=== PATIENT | female | born 1980 | race Caucasian/White ===

== ENCOUNTER 2023-03-12 18:34 | Emergency (ER) | payer OTHER, SELFPAY ==
[2023-03-12 18:40] VITALS: BP 122/71; PULSE 97; RESP 16; TEMP 36.7; O2SAT 96; BMI 31.0
--- NOTE | 2023-03-12 18:54 | ED.DENTAL1 ---
HPI - Dental/Oral General Chief complaint: Dental/Oral Stated complaint: DENTAL PAIN Time Seen by Provider: 03/12/23 18:35 Source: patient Mode of arrival: walk-in Limitations: no limitations History of Present Illness HPI Narrative: patient is a 42-year-old female presents the emergency department for the evaluation of dental pain and left-sided facial pain. Patient states the last several weeks she has had pain in tooth #14, tooth #15. She feels the pain radiates to the left side of the maxilla. She does have some pain radiation to the ear and left side of the jaw. No difficulty swallowing or breathing. She is not concerned for . She has had no fevers or vomiting. She states she does have a foul taste in the mouth. She is not able to see her dentist until April 01 and they would not call in antibiotics over the phone for her. Related Data Home Medications Medication Instructions Recorded Confirmed alprazolam 1 mg tablet (Xanax) 1 mg PO QID 03/12/23 03/12/23 brexpiprazole 0.5 mg tablet 4 mg PO DAILY 03/12/23 03/12/23 (Rexulti) dextroamphetamine-amphetamine 15 20 mg PO TID 03/12/23 03/12/23 mg tablet Previous Rx's Medication Instructions Recorded amoxicillin 500 mg capsule 500 mg PO TID 10 days #30 caps 03/12/23 hydrocodone 5 mg-acetaminophen 325 1 tab PO Q6H PRN pain #8 tabs 03/12/23 mg tablet ketorolac 10 mg tablet 10 mg PO TID PRN pain #10 tabs 03/12/23 Allergies Allergy/AdvReac Type Severity Reaction Status Date / Time No Known Drug Allergies Allergy Verified 03/12/23 18:44 Review of Systems ROS Constitutional Denies: fever or chills Ears, nose, mouth, and throat Denies: throat pain or neck pain Respiratory Denies: shortness of breath or cough Gastrointestinal Denies: nausea or vomiting Musculoskeletal Denies: back pain Integumentary/Breast Denies: rash Neurological Denies: headache Hematologic/Lymphatic Denies: easy bruising PFSH PFSH Social History Smoking status: Current every day smoker Exam Narrative Exam Narrative: Gen.: Awake, alert, in no distress Head: Normocephalic, atraumatic ENT: Moist mucous membranes; bilateral tympanic membranes clear, multiple diffuse dental caries with tenderness over tooth #14 and tooth #15. No visible dental abscess. No trismus or drooling. No redness or swelling under the tongue. Airway widely open and patent. no mandibular or maxillary swelling Respiratory: No respiratory distress Extremities: Moves extremities equally Psych: Normal mood and affect Neuro: No focal neuro deficit Skin: Warm, dry, intact Constitutional Vital Signs, click to edit/add: Last Vital Signs Temp 98.0 F 03/12/23 18:40 Pulse 97 H 03/12/23 18:40 Resp 16 03/12/23 18:40 BP 122/71 03/12/23 18:40 Pulse Ox 96 03/12/23 18:40 O2 Del Method Room Air 03/12/23 18:40 Course Vital Signs Vital signs: Vital Signs Temperature 98.0 F 03/12/23 18:40 Pulse Rate 97 H 03/12/23 18:40 Respiratory Rate 16 03/12/23 18:40 Blood Pressure 122/71 03/12/23 18:40 Pulse Oximetry 96 03/12/23 18:40 Oxygen Delivery Method Room Air 03/12/23 18:40 Temperature 98.0 F 03/12/23 18:40 Pulse Rate 97 H 03/12/23 18:40 Respiratory Rate 16 03/12/23 18:40 Blood Pressure 122/71 03/12/23 18:40 Pulse Oximetry 96 03/12/23 18:40 Oxygen Delivery Method Room Air 03/12/23 18:40 MDM - Dental/Oral MDM Narrative Medical decision making narrative: patient with a benign exam, no evidence of dental abscess at this time. Vital signs stable. Treated with dental analgesia, short course of analgesics and NSAIDs with antibiotics. Follow-up with dentist as scheduled and return to the Emergency Room if symptoms change or worsen Medical Records Attestation: I reviewed the patient's medical records. Discharge Plan Discharge Chief Complaint: Dental/Oral Clinical Impression: Dental caries, Toothache Patient Disposition: Home, Self-Care Time of Disposition Decision: 18:51 Condition: Good Prescriptions / Home Meds: New amoxicillin 500 mg capsule 500 mg PO TID 10 Days Qty: 30 0RF hydrocodone-acetaminophen 5-325 mg tablet 1 tab PO Q6H PRN (Reason: pain) Qty: 8 0RF Rx Instructions: DX: K08.89 ketorolac 10 mg tablet 10 mg PO TID PRN (Reason: pain) Qty: 10 0RF No Action Rexulti 0.5 mg tablet 4 mg PO DAILY dextroamphetamine-amphetamine 15 mg tablet 20 mg PO TID alprazolam [Xanax] 1 mg tablet 1 mg PO QID Instructions: Toothache (ED) Additional Instructions: Follow up with your dentist as scheduled Stand Alone Forms: Portal Instructions Referrals: Physician,Non-Staff, MD [Primary Care Provider] - 1 week
[2023-03-12] MEDS: BENZOCAINE 30 ML, lidocaine HCL 15 ML MM (19:19)
== END 2023-03-12 19:25 | disposition home or self-care (01) ==
PROVIDERS: Emergency Provider Emergency Medicine
DX: K02.9 Dental caries, unspecified (principal); K08.89 Other specified disorders of teeth and supporting structures; Z79.899 Other long term (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 therapy; F17.210 Nicotine dependence, cigarettes, uncomplicated
CPT/HCPCS: 99283

== ENCOUNTER 2023-04-08 14:10 | Emergency (ER) | payer OTHER, SELFPAY ==
[2023-04-08 14:23] VITALS: BP 163/98; PULSE 96; RESP 18; O2SAT 97; BMI 29.5
--- NOTE | 2023-04-08 14:55 | ED_ITS ---
Documented by User: EMIGDIO Talbert 04/08/23 15:00 HPI - Back Pain/Injury General Chief Complaint: Back Pain/Injury Stated Complaint: FALL-BACK PAIN Time Seen by Provider: 04/08/23 14:54 Source: patient Mode of arrival: walk-in Limitations: no limitations History of Present Illness HPI Narrative: 42-year-old female presents with left-sided back pain after she slipped on the last step and hit her back 7 hours ago.. Denies hitting her head. 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 She took Motrin. Pain radiates down her left leg. denies bowel or bladder incontinence. Moving around makes pain worse. Denies BLE swelling, temp or sensation changes. Related Data Home Medications Medication Instructions Recorded Confirmed alprazolam 1 mg tablet (Xanax) 1 mg PO QID 03/12/23 03/12/23 brexpiprazole 0.5 mg tablet 4 mg PO DAILY 03/12/23 03/12/23 (Rexulti) dextroamphetamine-amphetamine 15 20 mg PO TID 03/12/23 03/12/23 mg tablet Previous Rx's Medication Instructions Recorded amoxicillin 500 mg capsule 500 mg PO TID 10 days #30 caps 03/12/23 hydrocodone 5 mg-acetaminophen 325 1 tab PO Q6H PRN pain #8 tabs 03/12/23 mg tablet ketorolac 10 mg tablet 10 mg PO TID PRN pain #10 tabs 03/12/23 tizanidine 4 mg tablet (Zanaflex) 4 mg PO TID PRN muscle spasticity 04/08/23 5 days #15 tabs Allergies Allergy/AdvReac Type Severity Reaction Status Date / Time No Known Drug Allergies Allergy Verified 03/12/23 18:44 Review of Systems ROS Status of ROS 10 or more systems reviewed and unremarkable except as noted in history and below PFSH PFS Social History Smoking status: Current every day smoker Exam Narrative Exam Narrative: General: A&Ox3, no distress, talking in full an complete sentences skin: warm, dry, intact head: normocephalic, atraumatic eyes: EOMI nose: nares patent neck: supple, trachea midline respiratory: non-labored extremities: FROM x 4, strength +5/5 spine: Tender to L3 vertebral with L3/4 left paraspinal tenderness, normal ROM, no step offs neuro: A&Ox3 psych: appropriate mood and affect, cooperative Constitutional Vital Signs, click to edit/add: Last Vital Signs Pulse 96 H 04/08/23 14:23 Resp 18 04/08/23 14:23 BP 163/98 H 04/08/23 14:23 Pulse Ox 97 04/08/23 14:23 O2 Del Method Room Air 04/08/23 14:23 Course Vital Signs Vital signs: Vital Signs Pulse Rate 96 H 04/08/23 14:23 Respiratory Rate 18 04/08/23 14:23 Blood Pressure 163/98 H 04/08/23 14:23 Pulse Oximetry 97 04/08/23 14:23 Oxygen Delivery Method Room Air 04/08/23 14:23 Pulse Rate 96 H 04/08/23 14:23 Respiratory Rate 18 04/08/23 14:23 Blood Pressure 163/98 H 04/08/23 14:23 Pulse Oximetry 97 04/08/23 14:23 Oxygen Delivery Method Room Air 04/08/23 14:23 MDM - Back Pain/Injury MDM Narrative Medical decision making narrative: I discussed imaging to rule out fracture and patient declines. Patient states that she cannot have narcotics and will be given Toradol and a lidocaine patch and discharged with Zanaflex. F/u with PCP. afebrile, not tachypneic, not tachycardic, tolerating p.o., not hypoxic, non toxic appearing and ambulating at baseline and hemodynamically stable to be d/c. answered all questions. educated on SE of meds. pt in agreement with tx. educated when to return to ER. Discharge Plan Discharge Chief Complaint: Back Pain/Injury Clinical Impression: Fall (on) (from) other stairs and steps, initial encounter Lumbar contusion Qualifiers: Encounter type: initial encounter Qualified Code(s): S30.0XXA - Contusion of lower back and pelvis, initial encounter Patient Disposition: Home, Self-Care Time of Disposition Decision: 14:56 Condition: Good Mode of Transportation: Private Vehicle Prescriptions / Home Meds: New tizanidine [Zanaflex] 4 mg tablet 4 mg PO TID PRN (Reason: muscle spasticity) 5 Days Qty: 15 0RF No Action Rexulti 0.5 mg tablet 4 mg PO DAILY dextroamphetamine-amphetamine 15 mg tablet 20 mg PO TID alprazolam [Xanax] 1 mg tablet 1 mg PO QID amoxicillin 500 mg capsule 500 mg PO TID 10 Days Qty: 30 0RF hydrocodone-acetaminophen 5-325 mg tablet 1 tab PO Q6H PRN (Reason: pain) Qty: 8 0RF Rx Instructions: DX: K08.89 ketorolac 10 mg tablet 10 mg PO TID PRN (Reason: pain) Qty: 10 0RF Instructions: Contusion in Adults (ED) Stand Alone Forms: Portal Instructions Referrals: Physician,Non-Staff, MD [Primary Care Provider] - 1 week Discharge Date/Time: 04/08/23 15:26 Documented by User: Terrance Cruz MD 04/08/23 17:59 HPI - Back Pain/Injury General Chief Complaint: Back Pain/Injury Stated Complaint: FALL-BACK PAIN Time Seen by Provider: 04/08/23 14:54 Related Data Home Medications Medication Instructions Recorded Confirmed alprazolam 1 mg tablet (Xanax) 1 mg PO QID 03/12/23 03/12/23 brexpiprazole 0.5 mg tablet 4 mg PO DAILY 03/12/23 03/12/23 (Rexulti) dextroamphetamine-amphetamine 15 20 mg PO TID 03/12/23 03/12/23 mg tablet Previous Rx's Medication Instructions Recorded amoxicillin 500 mg capsule 500 mg PO TID 10 days #30 caps 03/12/23 hydrocodone 5 mg-acetaminophen 325 1 tab PO Q6H PRN pain #8 tabs 03/12/23 mg tablet ketorolac 10 mg tablet 10 mg PO TID PRN pain #10 tabs 03/12/23 tizanidine 4 mg tablet (Zanaflex) 4 mg PO TID PRN muscle spasticity 04/08/23 5 days #15 tabs Allergies Allergy/AdvReac Type Severity Reaction Status Date / Time No Known Drug Allergies Allergy Verified 03/12/23 18:44 PFSH [facility] Social History Smoking status: Current every day smoker Exam Narrative Exam Narrative: General: A&Ox3, no distress, talking in full an complete sentences skin: warm, dry, intact head: normocephalic, atraumatic eyes: EOMI nose: nares patent neck: supple, trachea midline respiratory: non-labored extremities: FROM x 4, strength +5/5 spine: Tender to L3 vertebral with L3/4 left paraspinal tenderness, normal ROM, no step offs; No signs of cauda equina or saddle anesthesia. neuro: A&Ox3 psych: appropriate mood and affect, cooperative Constitutional Vital Signs, click to edit/add: Last Vital Signs Pulse 96 H 04/08/23 14:23 Resp 18 04/08/23 14:23 BP 163/98 H 04/08/23 14:23 Pulse Ox 97 04/08/23 14:23 O2 Del Method Room Air 04/08/23 14:23 Course Vital Signs Vital signs: Vital Signs Pulse Rate 96 H 04/08/23 14:23 Respiratory Rate 18 04/08/23 14:23 Blood Pressure 163/98 H 04/08/23 14:23 Pulse Oximetry 97 04/08/23 14:23 Oxygen Delivery Method Room Air 04/08/23 14:23 Pulse Rate 96 H 04/08/23 14:23 Respiratory Rate 18 04/08/23 14:23 Blood Pressure 163/98 H 04/08/23 14:23 Pulse Oximetry 97 04/08/23 14:23 Oxygen Delivery Method Room Air 04/08/23 14:23 MDM - Back Pain/Injury MDM Narrative Medical decision making narrative: I discussed imaging to rule out fracture and patient declines. Patient states that she cannot have narcotics and will be given Toradol and a lidocaine patch and discharged with Zanaflex. F/u with PCP. afebrile, not tachypneic, not tachycardic, tolerating p.o., not hypoxic, non toxic appearing and ambulating at baseline and hemodynamically stable to be d/c. answered all questions. educated on SE of meds. pt in agreement with tx. educated when to return to ER. I, Dr Cruz, have reviewed the above progress note and course of action in the ER; agree with the above. I have personally seen and evaluated this patient, gone over history and physical, and discussed disposition and treatment plan with the patient. Discharge Plan Discharge Chief Complaint: Back Pain/Injury Clinical Impression: Fall (on) (from) other stairs and steps, initial encounter Lumbar contusion Qualifiers: Encounter type: initial encounter Qualified Code(s): S30.0XXA - Contusion of lower back and pelvis, initial encounter Patient Disposition: Home, Self-Care Time of Disposition Decision: 14:56 Condition: Good Mode of Transportation: Private Vehicle Prescriptions / Home Meds: New tizanidine [Zanaflex] 4 mg tablet 4 mg PO TID PRN (Reason: muscle spasticity) 5 Days Qty: 15 0RF No Action Rexulti 0.5 mg tablet 4 mg PO DAILY dextroamphetamine-amphetamine 15 mg tablet 20 mg PO TID alprazolam [Xanax] 1 mg tablet 1 mg PO QID amoxicillin 500 mg capsule 500 mg PO TID 10 Days Qty: 30 0RF hydrocodone-acetaminophen 5-325 mg tablet 1 tab PO Q6H PRN (Reason: pain) Qty: 8 0RF Rx Instructions: DX: K08.89 ketorolac 10 mg tablet 10 mg PO TID PRN (Reason: pain) Qty: 10 0RF Instructions: Contusion in Adults (ED) Stand Alone Forms: Portal Instructions Referrals: Physician,Non-Staff, MD [Primary Care Provider] - 1 week Discharge Date/Time: 04/08/23 15:26
[2023-04-08] MEDS: LIDOCAINE 5% PATCH 1 PATCH TOPICAL (15:14)
[2023-04-08] MEDS: KETOROLAC TROMETHAMINE 30 MG/ML VIAL 15 MG IM (15:15)
== END 2023-04-08 15:26 | disposition home or self-care (01) ==
PROVIDERS: Emergency Provider Emergency Medicine
DX: S30.0XXA Contusion of lower back and pelvis, initial encounter (principal); W10.9XXA Fall (on) (from) unspecified stairs and steps, initial encounter; Z79.899 Other long term (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 therapy; F17.210 Nicotine dependence, cigarettes, uncomplicated
CPT/HCPCS: 96372; 99284

== ENCOUNTER 2023-04-16 14:28 | Emergency (ER) | payer OTHER, SELFPAY ==
[2023-04-16] VITALS (11 sets, daily range): BP systolic 136–154; BP diastolic 86–88; PULSE 77–96; RESP 13–25; TEMP 36.4; O2SAT 97–100; BMI 26.9
--- NOTE | 2023-04-16 14:52 | XR_ITS ---
[facility] [place] [id number] Patient Name: ARNULFO OTOOLE MRN: [id number] date: 1980 Sex: F Assigned Patient Location: ER Current Patient Location: ER Accession/Order Number: [id number] Exam Date: 04/16/2023 15:05 Report Date: 04/16/2023 15:29 At the request of: STEVEN GOMEZ Procedure: XR chest 1V XR chest 1V, 04/16/2023 3:05 PM EDT, [facility]001 INDICATION: Shortness of breath COMPARISON: Chest radiograph from 08/05/2022. TECHNIQUE: Frontal view of the chest obtained. FINDINGS: The heart is normal in size. The aorta and mediastinum appear unremarkable. The pulmonary vasculature is normal. The lungs are clear. There is no evidence of pneumothorax or pleural effusion. The osseous structures appear intact. XR/XR chest 1V IMPRESSION: No active pulmonary process. Electronically authenticated by: NIKKI REN Date: 04/16/2023 15:29
--- NOTE | 2023-04-16 14:52 | ECG_ITS ---
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
--- NOTE | 2023-04-16 14:53 | ED_ITS ---
HPI - SOB/Dyspnea General Chief Complaint: Shortness of Breath/Dyspnea Stated Complaint: SHORTNESS OF BREATH Time Seen by Provider: 04/16/23 14:42 Source: patient Mode of arrival: walk-in Limitations: no limitations History of Present Illness HPI Narrative: patient is a 42-year-old female who presents to the emergency department for a one-week history of shortness of breath. She has had no objective fevers. She s tates she has had nasal congestion. She states she feels as though she cannot take a deep breath. She is concerned because in August she was diagnosed with pneumonia. She is a one pack per day cigarette smoker. She has had no vomiting or diarrhea. No complaints of chest pain. She has not had any sputum production or hemoptysis. She states she used a breathing treatment from her [id number] several days ago and states this did help her. She denies any history of heart or lung problems. She is not on control, no recent surgeries, no extremity swelling. Related Data Home Medications Medication Instructions Recorded Confirmed alprazolam 1 mg tablet (Xanax) 1 mg PO QID 03/12/23 04/16/23 brexpiprazole 0.5 mg tablet 4 mg PO DAILY 03/12/23 04/16/23 (Rexulti) dextroamphetamine-amphetamine 15 20 mg PO TID 03/12/23 03/12/23 mg tablet Previous Rx's Medication Instructions Recorded ketorolac 10 mg tablet 10 mg PO TID PRN pain #10 tabs 03/12/23 tizanidine 4 mg tablet (Zanaflex) 4 mg PO TID PRN muscle spasticity 04/08/23 5 days #15 tabs albuterol sulfate 90 mcg/actuation 2 inh inhalation Q4H PRN shortness 04/16/23 aerosol inhaler of breath or wheezing #8.5 grams azithromycin 250 mg tablet See Rx Instructions PO .COMPLEX #6 04/16/23 (Zithromax Z-Mitch) tabs [id number] 10 ml PO Q6H PRN cold symptoms 04/16/23 2 mg-30 mg-10 mg/5 mL oral syrup #200 mL (Bromfed DM) prednisone 20 mg tablet See Rx Instructions .Route 04/16/23 .COMPLEX #12 tabs Allergies Allergy/AdvReac Type Severity Reaction Status Date / Time No Known Drug Allergies Allergy Verified 03/12/23 18:44 Review of Systems ROS Constitutional Denies: fever or chills Ears, nose, mouth, and throat Reports: nasal congestion Cardiovascular Denies: chest pain Respiratory Reports: shortness of breath and cough Gastrointestinal Denies: nausea, vomiting or diarrhea Musculoskeletal Denies: back pain, neck pain or extremity swelling Endocrine Denies: excessive urination PFSH PFS Social History Smoking status: Current every day smoker Exam Narrative Exam Narrative: Gen.: Awake, alert, in no distress Head: Normocephalic, atraumatic ENT: Moist mucous membranes, bilateral tympanic membranes clear Respiratory: No respiratory distress, lungs clear bilaterally; no wheezing or rhonchi Cardio: Regular rate and rhythm Extremities: Moves extremities equally, no pedal edema Psych: Normal mood and affect Neuro: No focal neuro deficit Skin: Warm, dry, intact Constitutional Vital Signs, click to edit/add: Last Vital Signs Temp 97.6 F 04/16/23 14:33 Pulse 78 04/16/23 16:40 Resp 22 04/16/23 16:40 BP 154/86 H 04/16/23 14:34 Pulse Ox 99 04/16/23 16:40 O2 Del Method Room Air 04/16/23 15:11 Course Vital Signs Vital signs: Vital Signs Temperature 97.6 F 04/16/23 14:33 Pulse Rate 96 H 04/16/23 14:33 Respiratory Rate 18 04/16/23 14:33 Blood Pressure 154/86 H 04/16/23 14:33 Pulse Oximetry 100 04/16/23 14:33 Oxygen Delivery Method Room Air 04/16/23 14:33 Temperature 97.6 F 04/16/23 14:33 Pulse Rate 78 04/16/23 16:40 Respiratory Rate 22 04/16/23 16:40 Blood Pressure 154/86 H 04/16/23 14:34 Pulse Oximetry 99 04/16/23 16:40 Oxygen Delivery Method Room Air 04/16/23 15:11 MDM - SOB/Dyspnea MDM Narrative Medical decision making narrative: lab studies, EKG, chest x-ray unremarkable. Patient with no PE risk factors. She maintains normal vital signs in the emergency department. Patient will be discharged home based on duration of symptoms treated for bronchitis with Z-Mitch, Bromfed-DM, steroids, albuterol inhaler. Follow-up with PCP and return to the emergency department if symptoms change or worsen. Medical Records Attestation: I reviewed the patient's medical records. Lab Data Attestation: I reviewed the patient's lab results. Labs: Lab Results 04/16/23 04/16/23 Range/Units 15:30 15:34 WBC 8.9 (4.0-11.0) 10^3/uL RBC 4.39 (4.20-5.40) 10^6/uL Hgb 14.4 (12.0-16.0) g/dL Hct 41.0 (36.0-48.0) % MCV 93.4 (81.0-99.0) fL MCH 32.8 (26.7-34.0) pg MCHC 35.1 (29.9-35.2) g/dL RDW 12.7 (11.0-15.0) % Plt Count 276 (150-450) 10^3/uL MPV 9.8 (9.5-13.5) fL Neut % (Auto) 54.8 (43.0-75.0) % Lymph % (Auto) 35.4 (20.5-60.0) % [place] % (Auto) 7.7 (1.7-12.0) % Eos % (Auto) 1.0 (0.9-7.0) % Baso % (Auto) 0.8 (0.2-2.0) % Neut # (Auto) 4.9 (1.4-6.5) 10^3/uL Lymph # (Auto) 3.1 (1.2-3.8) 10^3/uL [place] # (Auto) 0.7 (0.3-0.8) 10^3/uL Eos # (Auto) 0.1 (0.0-0.7) 10^3/uL Baso # (Auto) 0.1 (0.0-0.1) 10^3/uL Abs Immat Gran (auto) 0.03 (0.00-0.03) 10^3/uL Imm/Tot Granulo (auto) 0.3 (0.0-0.5) % VBG pH 7.405 (7.330-7.430) VBG pCO2 37.6 L (40.0-52.0) mmHg Sodium 139 (136-145) mmol/L Potassium 3.5 (3.5-5.1) mmol/L Chloride 102 (98-107) mmol/L Carbon Dioxide 24.5 (21.0-32.0) mmol/L Anion Gap 16.0 BUN 12.0 (7.0-18.0) mg/dL Creatinine 0.73 (0.55-1.02) mg/dL Est GFR ( Amer) >60 (>=60) Est GFR (Non-Af Amer) >60 (>=60) BUN/Creatinine Ratio 16.4 Glucose 82 (74-106) mg/dL Calcium 8.5 (8.5-10.1) mg/dL Total Bilirubin 0.4 (0.2-1.0) mg/dL AST 17 (15-37) U/L ALT 22 (14-59) U/L Alkaline Phosphatase 84 (46-116) U/L Troponin I High Sens <4.0 L (4.0-51.3) pg/mL NT-Pro-B Natriuret Pep 166.0 (<=450.0) pg/mL Total Protein 7.2 (6.4-8.2) g/dL Albumin 3.8 (3.4-5.0) g/dL Globulin 3.4 g/dL Albumin/Globulin Ratio 1.1 SARS-CoV-2 (PCR) Negative (NEGATIVE) Imaging Data Chest x-ray: Attestation: I have reviewed the pertinent imaging results. Radiologist's impression: Procedure: XR chest 1V XR chest 1V, 04/16/2023 3:05 PM EDT, [place]001 INDICATION: Shortness of breath COMPARISON: Chest radiograph from 08/05/2022. TECHNIQUE: Frontal view of the chest obtained. FINDINGS: The heart is normal in size. The aorta and mediastinum appear unremarkable. The pulmonary vasculature is normal. The lungs are clear. There is no evidence of pneumothorax or pleural effusion. The osseous structures appear intact. IMPRESSION: No active pulmonary process. Electronically authenticated by: NIKKI REN Date: 04/16/2023 15:29 ECG Data Attestation: I personally reviewed and interpreted this ECG as follows: (normal sinus rhythm at a rate of eighty, no acute ST elevation or ectopy. EKG reviewed by attending physician) ECG interpretation date: 04/16/23 ECG interpretation time: 14:56 Discharge Plan Discharge Chief Complaint: Shortness of Breath/Dyspnea Clinical Impression: Shortness of breath, Bronchitis Patient Disposition: Home, Self-Care Time of Disposition Decision: 16:51 Condition: Good Prescriptions / Home Meds: New azithromycin [Zithromax Z-Mitch] 250 mg tablet See Rx Instructions .ROUTE .COMPLEX Qty: 6 0RF Rx Instructions: For 250 mg dose pack: take 500 mg today (day 1), then 250 mg for 4 days (days 2-5) prednisone 20 mg tablet See Rx Instructions .ROUTE .COMPLEX Qty: 12 0RF Rx Instructions: 3 tabs daily for 2 days, then 2 tabs daily for 2 days, then 1 tab daily for 2 days albuterol sulfate 90 mcg/actuation HFA aerosol inhaler 2 inh inhalation Q4H PRN (Reason: shortness of breath or wheezing) Qty: 8.5 0RF ruiobbzzxgbdysd-udtmixwcc-GV [Bromfed DM] 2-30-10 mg/5 mL syrup 10 ml PO Q6H PRN (Reason: cold symptoms) Qty: 200 0RF No Action Rexulti 0.5 mg tablet 4 mg PO DAILY dextroamphetamine-amphetamine 15 mg tablet 20 mg PO TID alprazolam [Xanax] 1 mg tablet 1 mg PO QID ketorolac 10 mg tablet 10 mg PO TID PRN (Reason: pain) Qty: 10 0RF Hold Instructions: dc tizanidine [Zanaflex] 4 mg tablet 4 mg PO TID PRN (Reason: muscle spasticity) 5 Days Qty: 15 0RF Hold Instructions: dc Instructions: Acute Bronchitis (ED), Shortness of Breath (ED) Stand Alone Forms: Portal Instructions Referrals: Physician,Non-Staff, MD [Primary Care Provider] - 1 week
[2023-04-16] MEDS: PREDNISONE 20 MG TABLET 60 MG PO (15:04)
[2023-04-16] MEDS: ALBUTEROL SULFATE 2.5 MG/3 ML VIAL NEB IH (15:10)
[2023-04-16 15:45] LABS: PCO2 VBG 37.6 mmHg (40.0-52.0); pH VBG 7.405 (7.330-7.430)
[2023-04-16 15:46] LABS: Basophils Absolute Auto 0.1 10^3/uL (0.0-0.1); Basophils Percent Auto 0.8 % (0.2-2.0); Eosinophils Absolute Auto 0.1 10^3/uL (0.0-0.7); Hemoglobin 14.4 g/dL (12.0-16.0); Immature Granulocytes Abs Auto 0.03 10^3/uL (0.00-0.03); Immature Granulocytes Pct Auto 0.3 % (0.0-0.5); Lymphocytes Absolute Auto 3.1 10^3/uL (1.2-3.8); Lymphocytes Percent Auto 35.4 % (20.5-60.0); Mean Corpuscular HGB Conc 35.1 g/dL (29.9-35.2); Mean Corpuscular Hemoglobin 32.8 pg (26.7-34.0); Mean Corpuscular Volume 93.4 fL (81.0-99.0); Mean Platelet Volume 9.8 fL (9.5-13.5); Monocytes Absolute Auto 0.7 10^3/uL (0.3-0.8); Monocytes Percent Auto 7.7 % (1.7-12.0); Neutrophils Absolute Auto 4.9 10^3/uL (1.4-6.5); Neutrophils Percent Auto 54.8 % (43.0-75.0); Platelet Count 276 10^3/uL (150-450); Red Blood Count 4.39 10^6/uL (4.20-5.40); Red Cell Distribution Width 12.7 % (11.0-15.0); White Blood Count 8.9 10^3/uL (4.0-11.0)
[2023-04-16 15:59] LABS: Alanine Aminotransferase 22 U/L (14-59); Albumin Globulin Ratio 1.1; Albumin Level 3.8 g/dL (3.4-5.0); Alkaline Phosphatase 84 U/L (46-116); Aspartate Amino Transferase 17 U/L (15-37); BUN Creatinine Ratio 16.4; Bilirubin Total 0.4 mg/dL (0.2-1.0); Calcium 8.5 mg/dL (8.5-10.1); Carbon Dioxide 24.5 mmol/L (21.0-32.0); Chloride 102 mmol/L (98-107); Estimated GFR (African America >60 (>=60); Estimated GFR (Non-African Ame >60 (>=60); Globulin 3.4 g/dL; Glucose 82 mg/dL (74-106); Potassium 3.5 mmol/L (3.5-5.1); Sodium 139 mmol/L (136-145); Total Protein 7.2 g/dL (6.4-8.2)
[2023-04-16 16:07] LABS: Troponin I High Sensitivity <4.0 pg/mL (4.0-51.3)
[2023-04-16 16:13] LABS: SARS-CoV-2 Ag NEGATIVE (NEGATIVE)
[2023-04-17 15:51] LABS: SARS-CoV-2 NAA NOT DETECTED (NOT DETECTE)
== END 2023-04-16 17:03 | disposition home or self-care (01) ==
PROVIDERS: Physician Assistant; Emergency Provider Emergency Medicine
DX: J40 Bronchitis, not specified as acute or chronic (principal); R06.02 Shortness of breath; F17.210 Nicotine dependence, cigarettes, uncomplicated; Z87.01 Personal history of pneumonia (recurrent); Z79.899 Other long term (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 therapy
CPT/HCPCS: 36415; 71045; 80053; 82800; 83880; 84484; 85025; 87635; 87811; 93005; 94640; 99285

== ENCOUNTER 2023-05-05 15:24 | Emergency (ER) | payer OTHER, SELFPAY ==
[2023-05-05 15:27] VITALS: BP 150/104; PULSE 74; RESP 16; TEMP 36.4; O2SAT 98; BMI 32.6
--- NOTE | 2023-05-05 15:37 | ED.DENTAL1 ---
HPI - Dental/Oral General Chief complaint: Dental/Oral Stated complaint: TOOTH PAIN Time Seen by Provider: 05/05/23 15:26 Source: patient Mode of arrival: walk-in History of Present Illness HPI Narrative: patient is a 43-year-old female presents to the Emergency Room with concerns of facial swelling and dental pain. Patient has history of poor dentition, was on antibiotics two months ago for dental infection amoxicillin. And again on amoxicillin a month ago for sinus infection. Patient states she developed swelling this morning. She has no appointment on May 18 with [facility], but has been waiting for a while to get in. She denies any fevers or chills, taking Motrin 800 mg for pain control. Pain is currently moderate but more concerned about swelling in the left maxillary region. Patient denies any neck pain or difficulty swallowing. She denies any chest pain or shortness of breath. MD Complaint: Reports tooth pain Related Data Home Medications Medication Instructions Recorded Confirmed alprazolam 1 mg tablet (Xanax) 1 mg PO QID 03/12/23 04/16/23 brexpiprazole 0.5 mg tablet 4 mg PO DAILY 03/12/23 04/16/23 (Rexulti) dextroamphetamine-amphetamine 15 20 mg PO TID 03/12/23 03/12/23 mg tablet Previous Rx's Medication Instructions Recorded ketorolac 10 mg tablet 10 mg PO TID PRN pain #10 tabs 03/12/23 tizanidine 4 mg tablet (Zanaflex) 4 mg PO TID PRN muscle spasticity 04/08/23 5 days #15 tabs albuterol sulfate 90 mcg/actuation 2 inh inhalation Q4H PRN shortness 04/16/23 aerosol inhaler of breath or wheezing #8.5 grams azithromycin 250 mg tablet See Rx Instructions PO .COMPLEX #6 04/16/23 (Zithromax Z-Mitch) tabs vpaeiixjhcsahsu-prttibednbndmxc-QU 10 ml PO Q6H PRN cold symptoms 04/16/23 2 mg-30 mg-10 mg/5 mL oral syrup #200 mL (Bromfed DM) prednisone 20 mg tablet See Rx Instructions .Route 04/16/23 .COMPLEX #12 tabs clindamycin HCl 300 mg capsule 300 mg PO QID 10 days #40 caps 05/05/23 fluconazole 150 mg tablet 150 mg PO DAILY 1 dose #1 tab 05/05/23 ibuprofen 600 mg tablet 600 mg PO TID PRN pain #30 tabs 05/05/23 Allergies Allergy/AdvReac Type Severity Reaction Status Date / Time No Known Drug Allergies Allergy Verified 03/12/23 18:44 Review of Systems ROS Constitutional Denies: fever or chills Ears, nose, mouth, and throat Denies: throat pain, neck pain, throat swelling or difficulty swallowing Cardiovascular Denies: chest pain Respiratory Denies: shortness of breath, cough or wheezing Genitourinary Reports: other (history of yeast infections following antibiotic use.) Musculoskeletal Denies: back pain or neck pain Neurological Denies: headache PFSH PFSH Social History Smoking status: Current every day smoker Exam Narrative Exam Narrative: Nurses notes reviewed and patient is noted to be non-hypoxic. General: The patient is comfortable, alert and oriented x3, well appearing, non toxic in no apparent distress. Head: Atraumatic and normocephalic, notable swelling left maxilla. Eyes: Normal conjunctiva, no exudates. ENT: The oropharynx is normal. No pharyngeal erythema, uvular edema, tonsillar exudates, asymmetry or trismus. Uvula is midline. Mouth noted to have multiple dental caries, poor dentition in the molars bilateral upper and lower. Exquisite tenderness left upper premolar with suspected abscess given left maxillary swelling, no fluctuant abscess for incision and drainage.Floor of the mouth is soft. No tenderness in the submental or submandibular space. No tongue elevation or deviation. Airway is patent. Neck: The neck demonstrates normal range of motion. No meningeals signs are present. No stridor. No masses or lymphandenopathy noted. Respiratory: No acute distress, lungs are clear to auscultation, no wheezing, rhonchi, or rales noted. No stridor or retractions are noted. Cardiovascular: Regular rate and rhythm Skin: The skin exam shows no evidence of rashes Neuro: Alert and oriented x4, normal speech Lymphatic: No cervical lymphadenopathy Constitutional Vital Signs, click to edit/add: Last Vital Signs Temp 97.6 F 05/05/23 15:27 Pulse 74 05/05/23 15:27 Resp 16 05/05/23 15:27 BP 150/104 H 05/05/23 15:27 Pulse Ox 98 05/05/23 15:27 O2 Del Method Room Air 05/05/23 15:27 Course Vital Signs Vital signs: Vital Signs Temperature 97.6 F 05/05/23 15:27 Pulse Rate 74 05/05/23 15:27 Respiratory Rate 16 05/05/23 15:27 Blood Pressure 150/104 H 05/05/23 15:27 Pulse Oximetry 98 05/05/23 15:27 Oxygen Delivery Method Room Air 05/05/23 15:27 Temperature 97.6 F 05/05/23 15:27 Pulse Rate 74 05/05/23 15:27 Respiratory Rate 16 05/05/23 15:27 Blood Pressure 150/104 H 05/05/23 15:27 Pulse Oximetry 98 05/05/23 15:27 Oxygen Delivery Method Room Air 05/05/23 15:27 MDM - Dental/Oral MDM Narrative Medical decision making narrative: my clinical impressions that she has a dental abscess. She started on clindamycin here and prescribed clindamycin and she has a dentist appointment already scheduled for May 18. I've no clinical suspicion of Senthil angina. Differential Diagnosis Differential diagnosis: Likely gingival abscess, dental caries and dental abscess Discharge Plan Discharge Chief Complaint: Dental/Oral Clinical Impression: Dental caries, Dental abscess Patient Disposition: Home, Self-Care Condition: Good Prescriptions / Home Meds: New fluconazole 150 mg tablet 150 mg PO DAILY Qty: 1 0RF Rx Instructions: take after antibiotics ibuprofen 600 mg tablet 600 mg PO TID PRN (Reason: pain) Qty: 30 0RF clindamycin HCl 300 mg capsule 300 mg PO QID 10 Days Qty: 40 0RF No Action Rexulti 0.5 mg tablet 4 mg PO DAILY dextroamphetamine-amphetamine 15 mg tablet 20 mg PO TID alprazolam [Xanax] 1 mg tablet 1 mg PO QID ketorolac 10 mg tablet 10 mg PO TID PRN (Reason: pain) Qty: 10 0RF Hold Instructions: dc tizanidine [Zanaflex] 4 mg tablet 4 mg PO TID PRN (Reason: muscle spasticity) 5 Days Qty: 15 0RF Hold Instructions: dc azithromycin [Zithromax Z-Mitch] 250 mg tablet See Rx Instructions .ROUTE .COMPLEX Qty: 6 0RF Rx Instructions: For 250 mg dose pack: take 500 mg today (day 1), then 250 mg for 4 days (days 2-5) prednisone 20 mg tablet See Rx Instructions .ROUTE .COMPLEX Qty: 12 0RF Rx Instructions: 3 tabs daily for 2 days, then 2 tabs daily for 2 days, then 1 tab daily for 2 days albuterol sulfate 90 mcg/actuation HFA aerosol inhaler 2 inh inhalation Q4H PRN (Reason: shortness of breath or wheezing) Qty: 8.5 0RF iyhnuaqdazerros-xbekapoms-NP [Bromfed DM] 2-30-10 mg/5 mL syrup 10 ml PO Q6H PRN (Reason: cold symptoms) Qty: 200 0RF Instructions: Dental Abscess (ED) Additional Instructions: Keep appt with [facility].. call them tomorrow and make them aware of ED visit and Current abcess Stand Alone Forms: Portal Instructions Referrals: Physician,Non-Staff, MD [Primary Care Provider] - 1 week
[2023-05-05] MEDS: CLINDAMYCIN HCL 150 MG CAPSULE 450 MG PO (15:50)
== END 2023-05-05 15:52 | disposition home or self-care (01) ==
PROVIDERS: Emergency Provider Emergency Medicine
DX: K04.7 Periapical abscess without sinus (principal); K02.9 Dental caries, unspecified; Z79.899 Other long term (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 therapy; F17.210 Nicotine dependence, cigarettes, uncomplicated
CPT/HCPCS: 99283

== ENCOUNTER 2023-07-30 20:33 | Emergency (ER) | payer OTHER, SELFPAY ==
--- OUTSIDE RECORDS SUMMARY | 2023-07-30 20:39 | XMS_ITS | CCD ---
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 Name Role Phone HADLEY TATUM, BRONWYN Jonas Admitting Unavailable NONE, NONE Primary Care Unavailable HADLEY TATUM, BRONWYN Jonas Attending Unavailable HADLEY TATUM, BRONWYN V Consulting Unavailable NONE, NONE Consulting Unavailable NONE, NONE Primary Care Unavailable HADLEY TATUM, BRONWYN V Attending Unavailable HADLEY TATUM, BRONWYN V Consulting Unavailable HADLEY TATUM, BRONWYN V Admitting Unavailable NONE, NONE Consulting Unavailable LUANNE ., AZUL Admitting Unavailable AZUL QUINN Attending Unavailable LUANNE Mullins, AZUL Consulting Unavailable ANAYASANCHEZ StearnsIN Consulting Unavailable LEWIS, RICHA Admitting Unavailable LEWSI, RICHA Attending Unavailable LEWIS, RICHA Consulting Unavailable HELIO .KAREN Consulting Unavailable DIAB ., GRAEME Admitting Unavailable DIAB .GRAEME Attending Unavailable DR ADIEL NONE LISTED Primary Care Unavaila DICK Brownlee Consulting Unavailable Terrance SPANGLER Attending Unavailable Problems Active Problems Problem Classification Problem Date Documented Da te Episodic/Chronic Other aftercare (1 source) Other salvage determiner (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 therapy; Translations: [OTH CARE MANAGEMENT SPECIALIST CURRENT DRUG THERAPY] Onset: 08-07-2022 Episodic Other upper respiratory infections (3 sources) Acute upper respiratory infection, unspecified; Translations: [ACUTE UP RESPIRATORY INFECTION UNS] Onset: 07-10-2021 Episodic Substance-related disorders (1 source) Nicotine dependence, cigarettes, uncomplicated; Translations: [NICOTINE DEPEND CIGARETTES UNCOMP] Onset: 08-07-2022 Chronic Unclassified (3 sources) COUGH, UNSPECIFIED; Translations: [COUGH, UNSPECIFIED] Onset: 08-07-2022 Unclassified (1 source) CONTACT W/AND (SUSP) EXPOS COVID-19; Translations: [CONTACT W/AND (SUSP) EXPOS COVID-19] Onset: 11-01-2021 Past or Other Problems Problem Classification Problem Date Documented Da te Episodic/Chronic Administrative/social admission (4 sources) Encounter for pre-employment examination; Translations: [ENCOUNTER FOR PRE-EMPLOYMENT EXAM] Onset: 11-21-2021 Episodic Malaise and fatigue (4 sources) Weakness; Translations: [WEAKNESS] Onset: 10-31-2021 Episodic Unclassified (1 source) COUGH, UNSPECIFIED; Translations: [COUGH, UNSPECIFIED] Onset: 08-05-2022 Viral infection (1 source) Viral infection, unspecified; Translations: [VIRAL INFECTION UNSPECIFIED] Onset: 11-01-2021 Episodic Results Test Name Value Interpretation Reference Range Facility [facility] 07-26-2023 Consent [id number] 0TIFF Normal [facility] Registrationon 07-26-2023 Registration [id number] 0TIFF Normal [facility] GROUP A STREP CULTUREon S. pyogenes Ag Ql (Unsp spec) Culture Observations: NEGATIVE FOR GROUP A STREPTOCOCCUS. Normal [facility] Comment on above: Performed By: #### G RASTCX, SSCRN #### [facility] [address] [address] [address] Nathalia Mercado STREPT SCREENon 08-05-2022 STREP SCREEN A Negative Normal NEGATIVE [facility] Comment on above: Performed By: #### G RASTCX, SSCRN #### [facility] [address] [address] [address] Nathalia Mercado XR CHEST 2 Von 08-05-2022 XR CHEST 2 V EXAM: XR CHEST 2 V COMPARISON: 10/31/2021 CLINICAL INDICATION: Cough. FINDINGS: The cardiomediastinal silhouette is within normal limits. No focal consolidation. No pleural effusion. No pneumothorax. Streaky densities in the anterior left lower lung/lingula, appearance suggests atelectasis or scarring, new compared to prior from 10/31/2021. Appearance less likely to represent developing infiltrate. Questionable approximately 1 cm nodular density in the left lower lung on the frontal view. Could simply relate to a superimposition of structures, however a pulmonary nodule cannot be excluded. IMPRESSION: Streaky densities in the anterior left lower lung/lingula, appearance suggests atelectasis or scarring, new compared to prior from 10/31/2021. Appearance less likely to represent developing infiltrate. No focal consolidation to definitely suggest pneumonia. Questionable approximately 1 cm nodular density in the left lower lung on the frontal view. Could simply relate to a superimposition of structures, however a pulmonary nodule cannot be excluded. Electronically authenticated by: DICK ANDRADE Date: 2022-08-05 18:08 Normal [facility] QUANTIFERON TB GOLD PLUSon 0 11-23-2021 QuantiFERON Criteria Comment Normal [facility] Comment on above: Result Comment: The QuantiFERON-TB Gold Plus result is determined by subtracting the Nil value from either TB antigen (Ag) tube. The mitogen tube serves as a control for the test. Performed By: #### G RASTCX, SSCRN #### [facility] [address] [place] [address] Dr. Nathalia Mercado QuantiFERON Mitogen Value >10.00 Normal [facility] Comment on above: Performed By: #### G RASTCX, SSCRN #### [facility] [address] [place] [address] Dr. Nathalia Mercado QuantiFERON Nil Value 0.02 IU/mL Normal [facility] Comment on above: Performed By: #### G RASTCX, SSCRN #### [facility] [address] [place] [address] Dr. Nathalia Mercado QuantiFERON TB1 Ag Value 0.04 IU/mL Normal [facility] Comment on above: Performed By: #### G RASTCX, SSCRN #### [facility] [address] [place] [address] Dr. Nathalia Mercado QuantiFERON TB2 Ag Value 0.03 IU/mL Normal [facility] Comment on above: Performed By: #### G RASTCX, SSCRN #### [facility] [address] [place] [address] Dr. Nathalia Mercado QuantiFERON Incubation Incubation performed. Normal [facility] Comment on above: Performed By: #### G RASTCX, SSCRN #### [facility] [address] [place] [address] Dr. Nathalia Mercado QuantiFERON-TB Gold Plus Negative Normal Negative [facility] Comment on above: Result Comment: Chem iluminescence immunoassay methodology Performed By: #### G RASTCX, SSCRN #### [facility] [address] [place] [address] Dr. Nathalia Mercado HEPATITIS B SURFACE ANTIBODY , QUANTon 11-22-2021 Hepatitis B Surf AB Quant 321.2 mIU/mL Normal Immunity>9.9 [facility] Comment on above: Result Comment: Stat us of Immunity Anti-HBs Level Inconsistent with Immunity 0.0 - 9.9 Consistent with Immunity >9.9 Performed By: #### H EPBSRF #### [facility] [address] [place] [address] Dr. Nathalia Mercado MMR IMMUNITYon 11-22-2021 Mumps Abs, IgG 16.9 AU/mL Normal Immune >10.9 [facility] Comment on above: Result Comment: Nega tive <9.0 Equivocal 9.0 - 10.9 Positive >10.9 A positive result generally indicates past exposure to Mumps virus or previous vaccination. Performed By: #### G RASTCX, SSCRN #### [facility] [address] [place] [address] Dr. Nathalia Mercado Rubella Antibodies, IgG 1.23 index Normal Immune >0.99 [facility] Comment on above: Result Comment: Non- immune <0.90 Equivocal 0.90 - 0.99 Immune >0.99 Performed By: #### G RASTCX, SSCRN #### [facility] [address] [place] [address] Dr. Nathalia Mercado Rubeola Ab, IgG 57.1 AU/mL Normal Immune >16.4 [facility] Comment on above: Result Comment: Nega tive <13.5 Equivocal 13.5 - 16.4 Positive >16.4 Presence of antibodies to Rubeola is presumptive evidence of immunity except when acute infection is suspected. Performed By: #### G JASMIN BARRETTRN #### [facility] [address] [place] [address] Dr. Nathalia Mercado VARICELLA IGG ABon 2 Varicella Zoster IgG 523 index Normal Immune >165 [facility] Comment on above: Result Comment: Nega tive <135 Equivocal 135 - 165 Positive >165 A positive result generally indicates exposure to the pathogen or administration of specific immunoglobulins, but it is not indication of active infection or stage of disease. Performed By: #### V ARCEL #### [facility] [address] [place] [address] Dr. Nathalia Mercado BNPon 10-31-2021 Natriuretic peptide B (Bld) [Mass/Vol] 167.0 pg/mL Normal <=450.0 [facility] Comment on above: Performed By: #### B CODING FILE CLERK, CMP #### [facility] [address] [place] [address] Dr. Nathalia Mercado CBC AUTO DIFFon 10-31-2021 BASO # 0.1 103/ul Normal 0.0-0.1 [facility] Comment on above: Performed By: #### G JASMIN BARRETTRN #### [facility] [address] [place] [address] Dr. Nathalia Mercado Basophils/100 WBC (Bld) 0.8 % Normal 0.2-2.0 [facility] Comment on above: Performed By: #### G ARNOLD SSCRN #### [facility] [address] [place] [address] Dr. Nathalia Mercado EO # 0.2 103/ul Normal 0.0-0.7 [facility] Comment on above: Performed By: #### G JASMIN BARRETTRN #### [facility] [address] [place] [address] Dr. Nathalia Mercado Eosinophils/100 WBC (Bld) 2.7 % Normal 0.9-7.0 [facility] Comment on above: Performed By: #### G RASTCX, SSCRN #### [facility] [address] [place] [address] Dr. Nathalia Mercado Erythrocyte distribution width (RBC) [Ratio] 12.2 % Normal 11.0-15.0 [facility] Comment on above: Performed By: #### G RASTCX, SSCRN #### [facility] [address] [place] [address] Dr. Nathalia Mercado Hematocrit (Bld) [Volume fraction] 44.2 % Normal 36.0-48.0 [facility] Comment on above: Performed By: #### G RASTCX, SSCRN #### [facility] [address] [place] [address] Dr. Nathalia Mercado Hemoglobin (Bld) [Mass/Vol] 15.3 g/dL Normal 12.0-16.0 [facility] Comment on above: Performed By: #### G RASTCX, SSCRN #### [facility] [address] [place] [address] Dr. Nathalia Mercado IG # 0.06 10e3/ul Critically high 0.00-0.03 [facility] Comment on above: Performed By: #### G RASTCX, SSCRN #### [facility] [address] [place] [address] Dr. Nathalia Mercado IG % 0.7 % Critically high 0.0-0.5 [facility] Comment on above: Performed By: #### G RASTCX, SSCRN #### [facility] [address] [place] [address] Dr. Nathalia Mercado LYMPH # 2.7 103/ul Normal 1.2-3.8 [facility] Comment on above: Performed By: #### G RASTCX, SSCRN #### [facility] [address] [place] [address] Dr. Nathalia Mercado Lymphocytes/100 WBC (Bld) 30.8 % Normal 20.5-60.0 [facility] Comment on above: Performed By: #### G RASTCX, SSCRN #### [facility] [address] [place] [address] Dr. Nathalia Mercado MANUAL DIFF REQ NO Normal [facility] Comment on above: Performed By: #### G RASTCX, SSCRN #### [facility] [address] [place] [address] Dr. Nathalia Mercado MCH (RBC) [Entitic mass] 32.8 pg Normal 26.7-34.0 [facility] Comment on above: Performed By: #### G RASTCX, SSCRN #### [facility] [address] [place] [address] Dr. Nathalia Mercado MCHC (RBC) [Mass/Vol] 34.6 g/dL Normal 29.9-35.2 [facility] Comment on above: Performed By: #### G RASTCX, SSCRN #### [facility] [address] [place] [address] Dr. Nathalia Mercado MCV (RBC) [Entitic vol] 94.8 fL Normal 81.0-99.0 [facility] Comment on above: Performed By: #### G RASTCX, SSCRN #### [facility] [address] [place] [address] Dr. Nathalia Mercado MONO # 0.6 103/ul Normal 0.3-0.8 [facility] Comment on above: Performed By: #### G RASTCX, SSCRN #### [facility] [address] [place] [address] Dr. Nathalia Mercado Monocytes/100 WBC (Bld) 6.7 % Normal 1.7-12.0 [facility] Comment on above: Performed By: #### G RASTCX, SSCRN #### [facility] [address] [place] [address] Dr. Nathalia Mercado NEUT # 5.1 103/ul Normal 1.4-6.5 [facility] Comment on above: Performed By: #### G RASTCX, SSCRN #### [facility] [address] [place] [address] Dr. Nathalia Mercado Neutrophils/100 WBC (Bld) 58.3 % Normal 43.0-75.0 [facility] Comment on above: Performed By: #### G RASTCX, SSCRN #### [facility] [address] [place] [address] Dr. Nathalia Mercado Platelet mean volume (Bld) [Entitic vol] 10.2 fL Normal 9.5-13.5 [facility] Comment on above: Performed By: #### G RASTCX, SSCRN #### [facility] [address] [place] [address] Dr. Nathalia Mercado PLT 341 103/ul Normal 150-450 [facility] Comment on above: Performed By: #### G RASTCX, SSCRN #### [facility] [address] [place] [address] Dr. Nathalia Mercado RBC 4.66 106/ul Normal 4.20-5.40 [facility] Comment on above: Performed By: #### G RASTCX, SSCRN #### [facility] [address] [place] [address] Dr. Nathalia Mercado WBC 8.7 103/ul Normal 4.0-11.0 [facility] Comment on above: Performed By: #### G RASTCX, SSCRN #### [facility] [address] [place] [address] Dr. Nathalia Mercaod [facility]on SARS-CoV-2 (COVID-19) RNA MELISA+probe Ql (Unsp spec) Not detected Normal NOT DETECTED [facility] Comment on above: Result Comment: When diagnostic testing is negative, the possibility of a false negative should be considered in the context of a patient's recent exposures and the presence of clinical signs and symptoms consistent with SARS-CoV-2. This test is not yet approved or cleared by the [place] FDA. When there are no FDA-approved or cleared tests available, and other criteria are met, FDA can make tests available under an emergency access mechanism called an Emergency Use Authorization (EUA). The EUA for this test is supported by the [place] of Health and Human Service's declaration that circumstances exist to justify the emergency use of in vitro diagnostics for the detection and/or diagnosis of the virus that causes COVID-19. This EUA will remain in effect for the duration of the COVID-19 declaration justifying emergency of IVDs, unless it is terminated or revoked by the FDA (after which the test may no longer be used). Performed By: #### C VDTBH #### [facility] [address] [place] [address] Dr. Nathalia Mercado D-DIMERon 10-31-2021 D-DIMER 0.25 mg/L FEU Normal 0.19-0.50 [facility] Comment on above: Performed By: #### D DIM #### [facility] [address] [place] [address] Dr. Nathalia Mercado D-DIMER COMMENTS SEE BELOW Normal [facility] Comment on above: Result Comment: Incr eases in D-Dimer concentration observed with thromboembolic events can be variable due to localization, size, and age of the thrombus. Therefore, a thromboembolic event cannot be diagnosed with certainty on the basis of the reference range. D-Dimers may also be elevated for a variety of disorders including: advanced age, , coronary disease, cancer, liver disease, infection, inflammation, hematoma, DIC, trauma, post-surgery, diabetes, thrombolytic or anticoagulant therapy, stress, and generalized hospitalization. Performed By: #### D DIM #### [facility] [address] [place] [address] Dr. Nathalia Mercado INFLUENZA A AND B AGon 10-31 INFLUANEGH SEE BELOW Normal [facility] Comment on above: Result Comment: Nega tive for Flu A protein angiten. Infection due to Flu A cannot be ruled out. Flu A angiten in the sample may be below the detection limit of the test. Performed By: #### G RASTCX, SSCRN #### [facility] [address] [place] [address] Dr. Nathalia Mercado INFLUBNEG SEE BELOW Normal [facility] Comment on above: Result Comment: Nega tive for Flu B protein antigen. Infection due to Flu B cannot be ruled out. Flu B antigen in the sample may be below the detection limit of the test. Performed By: #### G RASTCX, SSCRN #### [facility] [address] [place] [address] Dr. Nathalia Mercado INFLUENZA A AG Negative Normal NEGATIVE SEE COMMENT [facility] Comment on above: Performed By: #### G RASTCX, SSCRN #### [facility] [address] [address] [address] Nathalia Mercado INFLUENZA B AG Negative Normal NEGATIVE SEE COMMENT [facility] Comment on above: Performed By: #### G RASTCX, SSCRN #### [facility] [address] [place] [address] Dr. Nathalia Mercado INTERNAL CONTROLS Within Normal Limits Normal Wi thin Normal Limits [facility] Comment on above: Performed By: #### G RASTCX, SSCRN #### [facility] [address] [place] [address] Dr. Nathalia Mercado MONOon 10-31-2021 Monocytes (Bld) [#/Vol] Negative Normal NEGATIVE [facility] Comment on above: Performed By: #### M RAMONA #### [facility] [address] [place] [address] Dr. Nathalia Mercado PROF 14(COMP METB)on 022 Albumin [Mass/Vol] 3.6 g/dL Normal 3.4-5.0 [facility] Comment on above: Performed By: #### B CODING FILE CLERK, CMP #### [facility] [address] [place] [address] Dr. Nathalia Mercado Albumin/Globulin [Mass ratio] 1.1 {ratio} Normal [facility] Comment on above: Performed By: #### B CODING FILE CLERK, CMP #### [facility] [address] [place] [address] Dr. Nathalia Mercado ALP [Catalytic activity/Vol] 88 U/L Normal 46-116 [facility] Comment on above: Performed By: #### B CODING FILE CLERK, CMP #### [facility] [address] [place] [address] Dr. Nathalia Mercado ALT [Catalytic activity/Vol] 25 U/L Normal 14-59 [facility] Comment on above: Performed By: #### B CODING FILE CLERK, CMP #### [facility] [address] [place] [address] Dr. Nathalia Mercado Anion gap [Moles/Vol] 9.8 mmol/L Normal [facility] Comment on above: Performed By: #### B CODING FILE CLERK, CMP #### [facility] [address] [place] [address] Dr. Nathalia Mercado AST [Catalytic activity/Vol] 19 U/L Normal 15-37 [facility] Comment on above: Performed By: #### B CODING FILE CLERK, CMP #### [facility] [address] [place] [address] Dr. Nathalia Mercado Bilirubin [Mass/Vol] 0.3 mg/dL Normal 0.2-1.0 [facility] Comment on above: Performed By: #### B CODING FILE CLERK, CMP #### [facility] [address] [place] [address] Dr. Nathalia Mercado Calcium [Mass/Vol] 8.0 mg/dL Critically low 8.5-10.1 [facility] Comment on above: Performed By: #### B CODING FILE CLERK, CMP #### [facility] [address] [place] [address] Dr. Nathalia Mercado Chloride [Moles/Vol] 105 mmol/L Normal 98-107 [facility] Comment on above: Performed By: #### B CODING FILE CLERK, CMP #### [facility] [address] [place] [address] Dr. Nathalia Mercado CO2 [Moles/Vol] 21.3 mmol/L Normal 21.0-32.0 [facility] Comment on above: Performed By: #### B CODING FILE CLERK, CMP #### [facility] [address] [place] [address] Dr. Nathalia Mercado Creatinine [Mass/Vol] 0.82 mg/dL Normal 0.55-1.02 [facility] Comment on above: Performed By: #### B CODING FILE CLERK, CMP #### [facility] [address] [place] [address] Dr. Nathalia Mercado EGFR-AF ISRAELI >60 Normal >=60 [facility] Comment on above: Performed By: #### B CODING FILE CLERK, CMP #### [facility] [address] [place] [address] Dr. Nathalia Mercado EGFR-NON AF ISRAELI >60 Normal >=60 [facility] Comment on above: Performed By: #### B CODING FILE CLERK, CMP #### [facility] [address] [place] [address] Dr. Nathalia Mercado Globulin (S) [Mass/Vol] 3.2 g/dL Normal [facility] Comment on above: Performed By: #### B CODING FILE CLERK, CMP #### [facility] [address] [place] [address] Dr. Nathalia Mercado Glucose [Mass/Vol] 98 mg/dL Normal 74-106 [facility] Comment on above: Performed By: #### B CODING FILE CLERK, CMP #### [facility] [address] [place] [address] Dr. Nathalia Mercado Potassium [Moles/Vol] 4.1 mmol/L Normal 3.5-5.1 [facility] Comment on above: Performed By: #### B CODING FILE CLERK, CMP #### [facility] [address] [place] [address] Dr. Nathalia Mercado Protein [Mass/Vol] 6.8 g/dL Normal 6.1-8.2 [facility] Comment on above: Performed By: #### B CODING FILE CLERK, CMP #### [facility] [address] [place] [address] Dr. Nathalia Mercado Sodium [Moles/Vol] 132 mmol/L Critically low 136-145 [facility] Comment on above: Performed By: #### B CODING FILE CLERK, CMP #### [facility] [address] [place] [address] Dr. Nathalia Mercado Urea nitrogen [Mass/Vol] 9.0 mg/dL Normal 7.0-18.0 [facility] Comment on above: Performed By: #### B CODING FILE CLERK, CMP #### [facility] [address] [place] [address] Dr. Nathalia Mercado Urea nitrogen/Creatinine [Mass ratio] 11.0 mg/mg Normal [facility] Comment on above: Performed By: #### B CODING FILE CLERK, CMP #### [facility] [address] [place] [address] Dr. Nathalia Mercado TSHon 10-31-2021 TSH 1.626 uIU/mL Normal 0.470-4.680 [facility] Comment on above: Performed By: #### G ARNOLD, SSCRN #### [facility] [address] [place], [place] [address] Dr. Nathalia Mercado TSH RANGE SEE BELOW Normal [facility] Comment on above: Result Comment: <0.3 4 UIU/ml HYPERTHYROID 0.34-5.60 UIU/ml EUTHYROID >5.60 UIU/ml HYPOTHYROID Performed By: #### G LOULOUTCX SSCRN #### [facility] [address] [place], [place] [address] Dr. Nathalia Mercado XR CHEST 1 Von 10-31-2021 XR CHEST 1 V EXAM: XR CHEST 1 V EXAM: XR CHEST 1 V INDICATION: 41 years old Female SHORTNESS OF BREATH COMPARISON: July 13, 2021 FINDINGS: The cardiac silhouette is normal. There is no pulmonary edema. The lungs are clear. There is no pneumonia. There is no pneumothorax. There is no abnormal foreign body. IMPRESSION: There is no acute abnormality. Electronically authenticated by: CAIN ANAYA Date: 2021-10-31 12:56 Normal [facility] CORONAVIRUS ABBOTTon 022 HMOLE TESTING PERFORMED BY MOLECULAR METHOD Normal [facility] Comment on above: Performed By: #### C OVABOT #### [facility] [address] [place] [address] [id number] HPCRA TEST PERFORMED USING ERAZO ID NOW Normal [facility] Comment on above: Performed By: #### C OVABOT #### [facility] [address] [place] [address] [facility] [id number] SARS-CoV-2 (COVID-19) RNA MELISA+probe Ql (Unsp spec) Not detected Normal NOT DETECTED [facility] Comment on above: Performed By: #### C OVABOT #### [facility] [address] [place] [address] [place] - [facility] [id number] CORONAVIRUS ABBOTTon 021 HMOLE TESTING PERFORMED BY MOLECULAR METHOD Normal [facility] Comment on above: Performed By: #### C OVABOT #### [facility] [address] [place], [place] [address] [facility] [id number] HPCRA TEST PERFORMED USING ERAZO ID NOW Normal [facility] Comment on above: Performed By: #### C OVABOT #### [facility] [address] [place] [address] [place] - [facility] [id number] SARS-CoV-2 (COVID-19) RNA MELISA+probe Ql (Unsp spec) Not detected Normal NOT DETECTED [facility] Comment on above: Performed By: #### C OVABOT #### [facility] [address] [place] [address] [place] - [facility] [id number] Encounters Encounter Date Encounter Type Care Provider Facility Start: 07-26-2023 End: 07-27-2023 ambulatory Terrance DELANO [facility] [facility] Start: 08-05-2022 End: 08-05-2022 ambulatory KAREN CADET . Facility:[facility] Start: 11-21-2021 End: 11-22-2021 ambulatory RICHA SAUCEDO Facility:[facility] Start: 10-31-2021 End: 10-31-2021 ambulatory AZUL STROUD . Facility:[facility] Start: 07-10-2021 End: 07-11-2021 ambulatory BRONWYN BUTCHER MD Facility:[facility] Start: 04-10-2021 End: 04-11-2021 ambulatory NONE NONE Facility:[facility] Payers Date Payer Category Payer Unknown [id number] [id number] [id number] 1980 Unknown [id number] 2.16.84 [id number] 1980 Unknown [id number] 2.16.8 [id number] 1959 Self-pay 1959 Unknown [id number] Unknown [id number] 2.16.84 [id number] Summary Purpose Family History No Family History Records FoundNo Family History Records FoundNo Family History Records Found Advance Directives No Advanced Directives Records FoundNo Advanced Directives Records FoundNo Advanced Directives Records Found Additional Source Comments INFORMATION SOURCE (unrecogn ized section and content) DATE CREATED AUTHOR 07/12/2021 [facility] DATE CREATED AUTHOR AUTHOR'S ORGANIZ ATION 10/02/2022 [facility] DATE CREATED AUTHOR AUTHOR'S ORGANIZ ATION 07/28/2023 [facility] FOR RECORDS PERTAINING TO PATIENTS WHO ARE OR HAVE BEEN ENROLLED IN A CHEMICAL DEPENDENCY/SUBSTANCEABUSE PROGRAM, SOME INFORMATION MAY BE OMITTED. This clinical summary was aggregated from multiple sources. Caution should be exercised in using it in the provision of clinical care. This summary normalizes information from multiple sources, and as a consequence, information in this document may materially change the coding, format and clinical context of patient data. In addition, data may be omitted in some cases. CLINICAL DECISIONS SHOULD BE BASED ON THE PRIMARY CLINICAL RECORDS. [employer] provides no warranty or guarantee of the accuracy or completeness of information in this document.
[2023-07-30 20:45] VITALS: BP 150/104; PULSE 89; RESP 20; TEMP 36.5; O2SAT 98; BMI 28.1
[2023-07-30 21:00] VITALS: O2SAT 98
--- NOTE | 2023-07-30 21:35 | ED.DENTAL1 ---
HPI - Dental/Oral General Chief complaint: Dental/Oral Stated complaint: Dental Pain Time Seen by Provider: 07/30/23 20:50 Source: patient Mode of arrival: walk-in Limitations: no limitations History of Present Illness HPI Narrative: presents complaining of dental abscess pain. States she has some drainage. No fever. No problems swallowing. No fever , chills or nausea Related Data Home Medications Medication Instructions Recorded Confirmed alprazolam 1 mg tablet (Xanax) 1 mg PO QID 03/12/23 04/16/23 brexpiprazole 0.5 mg tablet 4 mg PO DAILY 03/12/23 04/16/23 (Rexulti) dextroamphetamine-amphetamine 15 20 mg PO TID 03/12/23 03/12/23 mg tablet Previous Rx's Medication Instructions Recorded ketorolac 10 mg tablet 10 mg PO TID PRN pain #10 tabs 03/12/23 tizanidine 4 mg tablet (Zanaflex) 4 mg PO TID PRN muscle spasticity 04/08/23 5 days #15 tabs albuterol sulfate 90 mcg/actuation 2 inh inhalation Q4H PRN shortness 04/16/23 aerosol inhaler of breath or wheezing #8.5 grams azithromycin 250 mg tablet See Rx Instructions PO .COMPLEX #6 04/16/23 (Zithromax Z-Mitch) tabs adaalgevhsmwqhx-ctjcraelcgmbstk-RQ 10 ml PO Q6H PRN cold symptoms 04/16/23 2 mg-30 mg-10 mg/5 mL oral syrup #200 mL (Bromfed DM) prednisone 20 mg tablet See Rx Instructions .Route 04/16/23 .COMPLEX #12 tabs clindamycin HCl 300 mg capsule 300 mg PO QID 10 days #40 caps 05/05/23 fluconazole 150 mg tablet 150 mg PO DAILY 1 dose #1 tab 05/05/23 ibuprofen 600 mg tablet 600 mg PO TID PRN pain #30 tabs 05/05/23 Allergies Allergy/AdvReac Type Severity Reaction Status Date / Time No Known Drug Allergies Allergy Verified 07/30/23 20:49 Review of Systems ROS Status of ROS 10 or more systems reviewed and unremarkable except as noted in history and below PFSH PFSH Social History Smoking status: Current every day smoker Exam Constitutional Vital Signs, click to edit/add: Last Vital Signs Temp 97.7 F 07/30/23 20:45 Pulse 89 07/30/23 20:45 Resp 20 07/30/23 20:45 BP 150/104 H 07/30/23 20:45 Pulse Ox 98 07/30/23 20:45 O2 Del Method Room Air 07/30/23 20:45 Common normals: no apparent distress, average body habitus, oriented x3, no limitations, healthy appearing, alert and well nourished [facility] Common normals: normocephalic and head/scalp atraumatic Other: abscess left upper molar. mild drainage. pointing Eye Common normals: EOMs intact bilaterally and conjunctivae normal Respiratory Common normals: normal respiratory effort and no retractions Cardio Common normals: regular rate, regular rhythm, S1 normal heart sound and S2 normal heart sound Extremity Common normals: normal to inspection and full ROM Neuro Common normals: oriented x3, CN's II-XII intact bilaterally, moves all extremities and no focal motor deficits Psych Appearance: grossly normal Course Vital Signs Vital signs: Vital Signs Temperature 97.7 F 07/30/23 20:45 Pulse Rate 89 07/30/23 20:45 Respiratory Rate 20 07/30/23 20:45 Blood Pressure 150/104 H 07/30/23 20:45 Pulse Oximetry 98 07/30/23 20:45 Oxygen Delivery Method Room Air 07/30/23 20:45 Temperature 97.7 F 07/30/23 20:45 Pulse Rate 89 07/30/23 20:45 Respiratory Rate 20 07/30/23 20:45 Blood Pressure 150/104 H 07/30/23 20:45 Pulse Oximetry 98 07/30/23 20:45 Oxygen Delivery Method Room Air 07/30/23 20:45 MDM - Dental/Oral MDM Narrative Medical decision making narrative: patient presents with dental abscess. Is pointing and draining. no facial swelling. Patient informed of the plan to treat with antibiotics. given an injection of Rocephin and discharged home with augmentin Discharge Plan Discharge Chief Complaint: Dental/Oral Clinical Impression: Dental abscess Prescriptions / Home Meds: No Action fluconazole 150 mg tablet 150 mg PO DAILY Qty: 1 0RF Rx Instructions: take after antibiotics ibuprofen 600 mg tablet 600 mg PO TID PRN (Reason: pain) Qty: 30 0RF clindamycin HCl 300 mg capsule 300 mg PO QID 10 Days Qty: 40 0RF Rexulti 0.5 mg tablet 4 mg PO DAILY dextroamphetamine-amphetamine 15 mg tablet 20 mg PO TID alprazolam [Xanax] 1 mg tablet 1 mg PO QID ketorolac 10 mg tablet 10 mg PO TID PRN (Reason: pain) Qty: 10 0RF Hold Instructions: dc tizanidine [Zanaflex] 4 mg tablet 4 mg PO TID PRN (Reason: muscle spasticity) 5 Days Qty: 15 0RF Hold Instructions: dc azithromycin [Zithromax Z-Mitch] 250 mg tablet See Rx Instructions .ROUTE .COMPLEX Qty: 6 0RF Rx Instructions: For 250 mg dose pack: take 500 mg today (day 1), then 250 mg for 4 days (days 2-5) prednisone 20 mg tablet See Rx Instructions .ROUTE .COMPLEX Qty: 12 0RF Rx Instructions: 3 tabs daily for 2 days, then 2 tabs daily for 2 days, then 1 tab daily for 2 days albuterol sulfate 90 mcg/actuation HFA aerosol inhaler 2 inh inhalation Q4H PRN (Reason: shortness of breath or wheezing) Qty: 8.5 0RF doelgzugcokwyde-uixubddhr-LS [Bromfed DM] 2-30-10 mg/5 mL syrup 10 ml PO Q6H PRN (Reason: cold symptoms) Qty: 200 0RF Instructions: Dental Abscess (ED) Additional Instructions: follow up with your dentist next week as planned. Return if increasing pain or swelling Stand Alone Forms: Portal Instructions Referrals: Physician,Non-Staff, MD [Primary Care Provider] - 1 week
[2023-07-30] MEDS: CEFTRIAXONE 1,000 MG, LIDOCAINE HCL/PF 2.1 ML IM (22:06)
--- NOTE | 2023-07-30 22:14 | PC.NURSE ---
left upper tooth pain that has been ongoing for several weeks. She has been on two different antibiotics. Has been taking Motrin at home but pain is not controlled. She has appointment to have tooth extracted next week.
== END 2023-07-30 22:17 | disposition home or self-care (01) ==
PROVIDERS: Emergency Provider Internal Medicine
DX: K04.7 Periapical abscess without sinus (principal); Z79.899 Other long term (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 therapy; F17.210 Nicotine dependence, cigarettes, uncomplicated
CPT/HCPCS: 99284; J0696

== ENCOUNTER 2023-08-20 13:16 | Emergency (ER) | payer OTHER, SELFPAY ==
[2023-08-20 13:22] VITALS: BP 157/99; PULSE 95; RESP 18; TEMP 36.6; O2SAT 100
--- NOTE | 2023-08-20 13:28 | ED.GENADUL1 ---
HPI - General Adult General Chief complaint: Upper Respiratory Infection Stated complaint: flu like symptoms Time Seen by Provider: 08/20/23 13:20 Source: patient Mode of arrival: walk-in Limitations: no limitations History of Present Illness HPI narrative: Patient is a 43-year-old female who presents to the emergency department essentially for flu and COVID testing. She states for the last day she has felt achy, generally weak, she has had coughing, congestion and diarrhea. She has had no objective fevers. No vomiting. She is not concerned for . She states she was exposed to a resident at the [place] [facility] where she works who had influenza A. 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 Related Data Home Medications Medication Instructions Recorded Confirmed alprazolam 1 mg tablet (Xanax) 1 mg PO QID 03/12/23 04/16/23 brexpiprazole 0.5 mg tablet 4 mg PO DAILY 03/12/23 04/16/23 (Rexulti) dextroamphetamine-amphetamine 15 20 mg PO TID 03/12/23 03/12/23 mg tablet Previous Rx's Medication Instructions Recorded ketorolac 10 mg tablet 10 mg PO TID PRN pain #10 tabs 03/12/23 tizanidine 4 mg tablet (Zanaflex) 4 mg PO TID PRN muscle spasticity 04/08/23 5 days #15 tabs albuterol sulfate 90 mcg/actuation 2 inh inhalation Q4H PRN shortness 04/16/23 aerosol inhaler of breath or wheezing #8.5 grams azithromycin 250 mg tablet See Rx Instructions PO .COMPLEX #6 04/16/23 (Zithromax Z-Mitch) tabs tkoqjcwsosqmrpc-xwgiixyfeurpszo-DI 10 ml PO Q6H PRN cold symptoms 04/16/23 2 mg-30 mg-10 mg/5 mL oral syrup #200 mL (Bromfed DM) prednisone 20 mg tablet See Rx Instructions .Route 04/16/23 .COMPLEX #12 tabs clindamycin HCl 300 mg capsule 300 mg PO QID 10 days #40 caps 05/05/23 fluconazole 150 mg tablet 150 mg PO DAILY 1 dose #1 tab 05/05/23 ibuprofen 600 mg tablet 600 mg PO TID PRN pain #30 tabs 05/05/23 attblytezavlgij-sihorxvitzxhsad-PM 10 ml PO Q6H PRN cold symptoms 08/20/23 2 mg-30 mg-10 mg/5 mL oral syrup #200 mL (Bromfed DM) ondansetron 4 mg disintegrating 4 mg PO Q6H PRN nausea and 08/20/23 tablet vomiting #12 tabs Allergies Allergy/AdvReac Type Severity Reaction Status Date / Time No Known Drug Allergies Allergy Verified 07/30/23 20:49 Review of Systems ROS Constitutional Reports: chills; Denies: fever Ears, nose, mouth, and throat Reports: throat pain and nasal congestion Cardiovascular Denies: chest pain Respiratory Reports: cough; Denies: shortness of breath Gastrointestinal Reports: nausea and diarrhea; Denies: vomiting Genitourinary Denies: painful urination Musculoskeletal Denies: back pain Integumentary/Breast Denies: rash Neurological Reports: headache PFSH PFSH Social History Smoking status: Current every day smoker Exam Narrative Exam Narrative: Gen.: Awake, alert, in no distress Head: Normocephalic, atraumatic ENT: Moist mucous membranes, Bilateral TMs clear, no pharyngeal erythema, clear speech Respiratory: No respiratory distress, lungs clear bilaterally Cardio: Regular rate and rhythm Extremities: Moves extremities equally Psych: Normal mood and affect Neuro: No focal neuro deficit Skin: Warm, dry, intact Constitutional Vital Signs, click to edit/add: Last Vital Signs Temp 97.9 F 08/20/23 13:22 Pulse 95 H 08/20/23 13:22 Resp 18 08/20/23 13:22 BP 157/99 H 08/20/23 13:22 Pulse Ox 100 08/20/23 13:22 Course Vital Signs Vital signs: Vital Signs Temperature 97.9 F 08/20/23 13:22 Pulse Rate 95 H 08/20/23 13:22 Respiratory Rate 18 08/20/23 13:22 Blood Pressure 157/99 H 08/20/23 13:22 Pulse Oximetry 100 08/20/23 13:22 Temperature 97.9 F 08/20/23 13:22 Pulse Rate 95 H 08/20/23 13:22 Respiratory Rate 18 08/20/23 13:22 Blood Pressure 157/99 H 08/20/23 13:22 Pulse Oximetry 100 08/20/23 13:22 Medical Decision Making MDM Narrative Medical decision making narrative: Is negative for strep, Influenza and COVID. She is treated with Decadron in the ER and discharged home with Bromfed-DM and Zofran. Work note provided. Increase fluids. Continue Motrin and Tylenol and return to the ER if symptoms change or worsen Medical Records Medical records reviewed: Yes I reviewed the patient's medical records Lab Data Lab results reviewed: Yes I reviewed the patient's lab results Labs: Lab Results 08/20/23 Range/Units 13:25 Influenza Type A Ag Negative Influenza Type B Ag Negative SARS-CoV-2 Ag (CV2AG) Negative (NEGATIVE) Streptococcus Screen Negative Discharge Plan Discharge Chief Complaint: Upper Respiratory Infection Clinical Impression: Flu-like symptoms Patient Disposition: Home, Self-Care Time of Disposition Decision: 14:14 Condition: Good Prescriptions / Home Meds: New wwbkxlobzqetbnu-kyvrrajja-RF [Bromfed DM] 2-30-10 mg/5 mL syrup 10 ml PO Q6H PRN (Reason: cold symptoms) Qty: 200 0RF ondansetron 4 mg tablet,disintegrating 4 mg PO Q6H PRN (Reason: nausea and vomiting) Qty: 12 0RF No Action fluconazole 150 mg tablet 150 mg PO DAILY Qty: 1 0RF Rx Instructions: take after antibiotics ibuprofen 600 mg tablet 600 mg PO TID PRN (Reason: pain) Qty: 30 0RF clindamycin HCl 300 mg capsule 300 mg PO QID 10 Days Qty: 40 0RF Rexulti 0.5 mg tablet 4 mg PO DAILY dextroamphetamine-amphetamine 15 mg tablet 20 mg PO TID alprazolam [Xanax] 1 mg tablet 1 mg PO QID ketorolac 10 mg tablet 10 mg PO TID PRN (Reason: pain) Qty: 10 0RF Hold Instructions: dc tizanidine [Zanaflex] 4 mg tablet 4 mg PO TID PRN (Reason: muscle spasticity) 5 Days Qty: 15 0RF Hold Instructions: dc azithromycin [Zithromax Z-Mitch] 250 mg tablet See Rx Instructions .ROUTE .COMPLEX Qty: 6 0RF Rx Instructions: For 250 mg dose pack: take 500 mg today (day 1), then 250 mg for 4 days (days 2-5) prednisone 20 mg tablet See Rx Instructions .ROUTE .COMPLEX Qty: 12 0RF Rx Instructions: 3 tabs daily for 2 days, then 2 tabs daily for 2 days, then 1 tab daily for 2 days albuterol sulfate 90 mcg/actuation HFA aerosol inhaler 2 inh inhalation Q4H PRN (Reason: shortness of breath or wheezing) Qty: 8.5 0RF nkspvvgvafaxpvf-mrkkytcld-GT [Bromfed DM] 2-30-10 mg/5 mL syrup 10 ml PO Q6H PRN (Reason: cold symptoms) Qty: 200 0RF Instructions: Viral Syndrome (ED) Stand Alone Forms: Portal Instructions Referrals: Physician,Non-Staff, MD [Primary Care Provider] - 1 week
--- OUTSIDE RECORDS SUMMARY | 2023-08-20 13:41 | XMS_ITS | CCD ---
Author Name Unknown Address [address] [facility] [address] [place] [address] Organization [facility] Care Team Providers Care Paperboard Boxes Estimator Name Role Phone HADLEY TATUM, BRONWYN Jonas Admitting Unavailable NONE, NONE Primary Care Unavailable HADLEY TATUM, BRONWYN Jonas Attending Unavailable HADLEY TATUM, BRONWYN V Consulting Unavailable NONE, NONE Consulting Unavailable NONE, NONE Primary Care Unavailable HADLEY TATUM, BRONWYN V Attending Unavailable HADLEY TATUM, BRONWYN V Consulting Unavailable HADLEY TATUM, BRONWYN V Admitting Unavailable NONE, NONE Consulting Unavailable LUANNE ., AZUL Admitting Unavailable LUANNE ., AZUL Attending Unavailable LUANNE Mullins, AZUL Consulting Unavailable CAIN ANAYA Consulting Unavailable LEWIS, RICHA Admitting Unavailable LEWIS, RICHA Attending Unavailable LEWIS, RICHA Consulting Unavailable HELIO .KAREN Consulting Unavailable DIAB ., GRAEME Admitting Unavailable DIAB ., GRAEME Attending Unavailable DR ADIEL NONE LISTED Primary Care UnavailDICK Villanueva Consulting Unavailable Terrance SPANGLER Attending Unavailable Terrance SPANGLER Attending Unavailable Problems Active Problems Problem Classification Problem Date Documented Da te Episodic/Chronic Other aftercare (1 source) Other half-way (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 therapy; Translations: [OTH CUSTODIAL CURRENT DRUG THERAPY] Onset: 08-07-2022 Episodic Other [...] Name Value Interpretation Reference Range Facility [place] 08-02-2023 Consent [id number] 0TIFF Normal [facility] Registrationon 08-02-2023 Registration [id number] 0TIFF Normal [facility] [place] 07-26-2023 Consent [id number] 0TIFF Normal [facility] Registrationon 07-26-2023 Registration [id number] 0TIFF Normal [facility] GROUP A STREP CULTUREon S. pyogenes Ag Ql (Unsp spec) Culture Observations: NEGATIVE FOR GROUP A STREPTOCOCCUS. Normal [facility] Comment on above: Performed By: #### G RASTCX, SSCRN #### [facility] [address] [address] [address] Nathalia Mercado STREPT SCREENon 08-05-2022 STREP SCREEN A Negative Normal NEGATIVE [facility] Comment on above: Performed By: #### G RASTCX, SSCRN #### [facility] [address], [place] [address] Dr. Nathalia Mercado XR CHEST 2 Von [...] DICK ANDRADE Date: 2022-08-05 18:08 Normal [facility] QUANTIFERON TB GOLD PLUSon 0 11-23-2021 QuantiFERON Criteria Comment Normal [facility] Comment on above: Result Comment: The QuantiFERON-TB Gold Plus result is determined by subtracting the Nil value from either TB antigen (Ag) tube. The mitogen tube serves as a control for the test. Performed By: #### G RASTCX, SSCRN #### [facility] [address] [place] [address] Dr. Nathalia Mercado QuantiFERON Mitogen Value >10.00 Normal [facility] Comment on above: Performed By: #### G RASTCX, SSCRN #### [facility] [address] [place] [address] Dr. Nathalia Mercado QuantiFERON Nil Value 0.02 IU/mL Normal [facility] Comment on above: Performed By: #### G RASTCX, SSCRN #### [facility] [address] [place] [address] Dr. Nathalia Mercado QuantiFERON TB1 Ag Value 0.04 IU/mL Normal [facility] Comment on above: Performed By: #### G RASTCX, SSCRN #### [facility] [address] [place] [address] Dr. Nathalia Mercado QuantiFERON TB2 Ag Value 0.03 IU/mL Normal [facility] Comment on above: Performed By: #### G RASALBERTOXJASMINRN #### [facility] [address] [place] [address] Dr. Nathalia Mercado QuantiFERON Incubation Incubation performed. Normal [facility] Comment on above: Performed By: #### G RASTCX SSCRN #### [facility] [address] [place] [address] Dr. Nathalia Mercado QuantiFERON-TB Gold Plus Negative Normal Negative [facility] Comment on above: Result Comment: Chem iluminescence immunoassay methodology Performed By: #### G JASMIN BARRETTRN #### [facility] [address] [place] [address] Dr. Nathalia Mercado HEPATITIS B SURFACE ANTIBODY , QUANTon 11-22-2021 Hepatitis B Surf AB Quant 321.2 mIU/mL Normal Immunity>9.9 [facility] Comment on above: Result Comment: Stat us of Immunity Anti-HBs Level Inconsistent with Immunity 0.0 - 9.9 Consistent with Immunity >9.9 Performed By: #### H EPBSRF #### [facility] [address] [place] [address] Dr. Nathalia Mercado MMR IMMUNITYon 11-22-2021 Mumps Abs, IgG 16.9 AU/mL Normal Immune >10.9 [facility] Comment on above: Result Comment: Nega tive <9.0 Equivocal 9.0 - 10.9 Positive >10.9 A positive result generally indicates past exposure to Mumps virus or previous vaccination. Performed By: #### G RASTCX SSCRN #### [facility] [address] [place] [address] Dr. Nathalia Mercado Rubella Antibodies, IgG 1.23 index Normal Immune >0.99 [facility] Comment on above: Result Comment: Non- immune <0.90 Equivocal 0.90 - 0.99 Immune >0.99 Performed By: #### G RASTCXJASMINRN #### [facility] [address] [place] [address] Dr. Nathalia Mercado Rubeola Ab, IgG 57.1 AU/mL Normal Immune >16.4 [facility] Comment on above: Result Comment: Nega tive <13.5 Equivocal 13.5 - 16.4 Positive >16.4 Presence of antibodies to Rubeola is presumptive evidence of immunity except when acute infection is suspected. Performed By: #### G RASTCX, SSCRN #### [facility] [address] [place] [address] Dr. Nathalia Mercado VARICELLA IGG ABon 2 Varicella Zoster IgG 523 index Normal Immune >165 [facility] Comment on above: Result Comment: Nega tive <135 Equivocal 135 - 165 Positive >165 A positive result generally indicates exposure to the pathogen or administration of specific immunoglobulins, but it is not indication of active infection or stage of disease. Performed By: #### V ARCEL #### [facility] [address] [place] [address] Dr. Nathalia Mercado BNPon 10-31-2021 Natriuretic peptide B (Bld) [Mass/Vol] 167.0 pg/mL Normal <=450.0 [facility] Comment on above: Performed By: #### B NURSE LIAISON, CMP #### [facility] [address] [place] [address] Dr. Nathalia Mercado CBC AUTO DIFFon 10-31-2021 BASO # 0.1 103/ul Normal 0.0-0.1 [facility] Comment on above: Performed By: #### G RASTCX, SSCRN #### [facility] [address] [place] [address] Dr. Nathalia Mercado Basophils/100 WBC (Bld) 0.8 % Normal 0.2-2.0 [facility] Comment on above: Performed By: #### G RASTCX, SSCRN #### [facility] [address] [place] [address] Dr. Nathalia Mercado EO # 0.2 103/ul Normal 0.0-0.7 [facility] Comment on above: Performed By: #### G RASTCX, SSCRN #### [facility] [address] [place] [address] Dr. Nathalia Mercado Eosinophils/100 WBC (Bld) 2.7 % Normal 0.9-7.0 [facility] Comment on above: Performed By: #### G RASTCX, SSCRN #### [facility] [address] [place] [address] Dr. Nathalia Mercado Erythrocyte distribution width (RBC) [Ratio] 12.2 % Normal 11.0-15.0 [facility] Comment on above: Performed By: #### G RASTCX, SSCRN #### [facility] [address] [place] [address] Dr. Nathalia Mercado Hematocrit (Bld) [Volume fraction] 44.2 % Normal 36.0-48.0 [facility] Comment on above: Performed By: #### G RASTCX, SSCRN #### [facility] [address] [place] [address] Dr. Nathalia Mercado Hemoglobin (Bld) [Mass/Vol] 15.3 g/dL Normal 12.0-16.0 [facility] Comment on above: Performed By: #### G RASTCX, SSCRN #### [facility] [address] [place] [address] Dr. Nathalia Mercado IG # 0.06 10e3/ul Critically high 0.00-0.03 [facility] Comment on above: Performed By: #### G RASTCX, SSCRN #### [facility] [address] [place] [address] Dr. Nathalia Mercado IG % 0.7 % Critically high 0.0-0.5 [facility] Comment on above: Performed By: #### G RASTCX, SSCRN #### [facility] [address] [place] [address] Dr. Nathalia Mercado LYMPH # 2.7 103/ul Normal 1.2-3.8 [facility] Comment on above: Performed By: #### G RASTCX, SSCRN #### [facility] [address] [address] [address] Nathalia Mercado Lymphocytes/100 WBC (Bld) 30.8 % Normal 20.5-60.0 [facility] Comment on above: Performed By: #### G RASTCX, SSCRN #### [facility] [address] [address] [address] Nathalia Mercado MANUAL DIFF REQ NO Normal [facility] Comment on above: Performed By: #### G RASTCX, SSCRN #### [facility] [address] [place] [address] Dr. Nathalia Mercado MCH (RBC) [Entitic mass] 32.8 pg Normal 26.7-34.0 [facility] Comment on above: Performed By: #### G RASTCX, SSCRN #### [facility] [address] [place] [address] Dr. Nathalia Mercado MCHC (RBC) [Mass/Vol] 34.6 g/dL Normal 29.9-35.2 [facility] Comment on above: Performed By: #### G RASTCX, SSCRN #### [facility] [address] [place] [address] Dr. Nathalia Mercado MCV (RBC) [Entitic vol] 94.8 fL Normal 81.0-99.0 [facility] Comment on above: Performed By: #### G RASTCX, SSCRN #### [facility] [address] [place] [address] Dr. Nathalia Mercado MONO # 0.6 103/ul Normal 0.3-0.8 [facility] Comment on above: Performed By: #### G RASTCX, SSCRN #### [facility] [address] [address] [address] Nathalia Mercado Monocytes/100 WBC (Bld) 6.7 % Normal 1.7-12.0 [facility] Comment on above: Performed By: #### G RASTCX, SSCRN #### [facility] [address] [address] [address] Nathalia Mercado NEUT # 5.1 103/ul Normal 1.4-6.5 [facility] Comment on above: Performed By: #### G RASTCX, SSCRN #### [facility] [address] [place] [address] Dr. Nathalia Mercado Neutrophils/100 WBC (Bld) 58.3 % Normal 43.0-75.0 [facility] Comment on above: Performed By: #### G RASTCX, SSCRN #### [facility] [address] [place] [address] Dr. Nathalia Mercado Platelet mean volume (Bld) [Entitic vol] 10.2 fL Normal 9.5-13.5 [facility] Comment on above: Performed By: #### G LOULOUTCX, SSCRN #### [facility] [address] [place] [address] Dr. Nathalia Mercado PLT 341 103/ul Normal 150-450 [facility] Comment on above: Performed By: #### G LOULOUTCX, SSCRN #### [facility] [address] [place] [address] Dr. Nathalia Mercado RBC 4.66 106/ul Normal 4.20-5.40 [facility] Comment on above: Performed By: #### Chandu JHOANX, SSCRN #### [facility] [address] [place] [address] Dr. Nathalia Mercado WBC 8.7 103/ul Normal 4.0-11.0 [facility] Comment on above: Performed By: #### G LOULOUTCX, SSCRN #### [facility] [address] [place] [address] Dr. Nathalia Mercado [facility]on SARS-CoV-2 (COVID-19) RNA MELISA+probe Ql (Unsp spec) Not detected Normal NOT DETECTED [facility] Comment on above: Result Comment: When [...] for this test is supported by the [place] of Health and Human Service's declaration that [...] used). Performed By: #### C VDTBH #### [facility] [address] [place] [address] Dr. Nathalia Mercado D-DIMERon 10-31-2021 D-DIMER 0.25 mg/L FEU Normal 0.19-0.50 [facility] [place] Comment on above: Performed By: #### D DIM #### [facility] [address] [place] [address] Dr. Nathalia Mercado D-DIMER COMMENTS SEE BELOW Normal [facility] Comment on above: Result Comment: Incr eases [...] hospitalization. Performed By: #### D DIM #### [facility] [address] [place] [address] Dr. Nathalia Mercado INFLUENZA A AND B AGon 10-31 INFLUANEGH SEE BELOW Normal [facility] Comment on above: Result Comment: Nega tive for Flu A protein angiten. Infection due to Flu A cannot be ruled out. Flu A angiten in the sample may be below the detection limit of the test. Performed By: #### G RASTCX, SSCRN #### [facility] [address] [place] [address] Dr. Nathalia Mercado INFLUBNEGH SEE BELOW Normal [facility] Comment on above: Result Comment: Nega tive for Flu B protein antigen. Infection due to Flu B cannot be ruled out. Flu B antigen in the sample may be below the detection limit of the test. Performed By: #### G RASTCX, SSCRN #### [facility] [address] [place] [address] Dr. Nathalia Mercado INFLUENZA A AG Negative Normal NEGATIVE SEE COMMENT [facility] Comment on above: Performed By: #### G RASTCX, SSCRN #### [facility] [address] [place] [address] Dr. Nathalia Mercado INFLUENZA B AG Negative Normal NEGATIVE SEE COMMENT [facility] Comment on above: Performed By: #### G RASTCX, SSCRN #### [facility] [address] [place] [address] Dr. Nathalia Mercado INTERNAL CONTROLS Within Normal Limits Normal Wi thin Normal Limits [facility] Comment on above: Performed By: #### G RASTCX, SSCRN #### [facility] [address] [place] [address] Dr. Nathalia Mercado MONOon 10-31-2021 Monocytes (Bld) [#/Vol] Negative Normal NEGATIVE [facility] Comment on above: Performed By: #### M RAMONA #### [facility] [address] [place] [address] Dr. Nathalia Mercado PROF 14(COMP METB)on 022 Albumin [Mass/Vol] 3.6 g/dL Normal 3.4-5.0 [facility] Comment on above: Performed By: #### B NURSE LIAISON, CMP #### [facility] [address] [place] [address] Dr. Nathalia Mercado Albumin/Globulin [Mass ratio] 1.1 {ratio} Normal [facility] Comment on above: Performed By: #### B NURSE LIAISON, CMP #### [facility] [address] [place] [address] Dr. Nathalia Mercado ALP [Catalytic activity/Vol] 88 U/L Normal 46-116 [facility] Comment on above: Performed By: #### B NURSE LIAISON, CMP #### [facility] [address] [address] [address] Nathalia Mercado ALT [Catalytic activity/Vol] 25 U/L Normal 14-59 [facility] Comment on above: Performed By: #### B NURSE LIAISON, CMP #### [facility] [address] [address] [address] Nathalia Mercado Anion gap [Moles/Vol] 9.8 mmol/L Normal [facility] Comment on above: Performed By: #### B NURSE LIAISON, CMP #### [facility] [address] [address] [address] Nathalia Mercado AST [Catalytic activity/Vol] 19 U/L Normal 15-37 [facility] Comment on above: Performed By: #### B NURSE LIAISON, CMP #### [facility] [address] [place] [address] Dr. Nathalia Mercado Bilirubin [Mass/Vol] 0.3 mg/dL Normal 0.2-1.0 [facility] Comment on above: Performed By: #### B NURSE LIAISON, CMP #### [facility] [address] [address] [address] Nathalia Mercado Calcium [Mass/Vol] 8.0 mg/dL Critically low 8.5-10.1 Th [facility] Comment on above: Performed By: #### B NURSE LIAISON, CMP #### [facility] [address] [place] [address] Dr. Nathalia Mercado Chloride [Moles/Vol] 105 mmol/L Normal 98-107 [facility] Comment on above: Performed By: #### B NURSE LIAISON, CMP #### [facility] [address] [address] [address] Nathalia Mercado CO2 [Moles/Vol] 21.3 mmol/L Normal 21.0-32.0 [facility] Comment on above: Performed By: #### B NURSE LIAISON, CMP #### [facility] [address] [address] [address] Nathalia Mercado Creatinine [Mass/Vol] 0.82 mg/dL Normal 0.55-1.02 [facility] Comment on above: Performed By: #### B NURSE LIAISON, CMP #### [facility] [address] [address] [address] Nathalia Mercado EGFR-AF PERUVIAN >60 Normal >=60 [facility] Comment on above: Performed By: #### B NURSE LIAISON, CMP #### [facility] [address] [address] [address] Nathalia Mercado EGFR-NON AF PERUVIAN >60 Normal >=60 [facility] Comment on above: Performed By: #### B NURSE LIAISON, CMP #### [facility] [address] [address] [address] Nathalia Mercado Globulin (S) [Mass/Vol] 3.2 g/dL Normal [facility] Comment on above: Performed By: #### B NURSE LIAISON, CMP #### [facility] [address] [place] [address] Dr. Nathalia Mercado Glucose [Mass/Vol] 98 mg/dL Normal 74-106 [facility] Comment on above: Performed By: #### B NURSE LIAISON, CMP #### [facility] [address] [place] [address] Dr. Nathalia Mercado Potassium [Moles/Vol] 4.1 mmol/L Normal 3.5-5.1 [facility] Comment on above: Performed By: #### B NURSE LIAISON, CMP #### [facility] [address] [place] [address] Dr. Nathalia Mercado Protein [Mass/Vol] 6.8 g/dL Normal 6.1-8.2 [facility] Comment on above: Performed By: #### B NURSE LIAISON, CMP #### [facility] [address] [place] [address] Dr. Nathalia Mercado Sodium [Moles/Vol] 132 mmol/L Critically low 136-145 Th [facility] Comment on above: Performed By: #### B NURSE LIAISON, CMP #### [facility] [address] [place] [address] Dr. Nathalia Mercado Urea nitrogen [Mass/Vol] 9.0 mg/dL Normal 7.0-18.0 [facility] Comment on above: Performed By: #### B NURSE LIAISON, CMP #### [facility] [address] [address] [address] Nathalia Mercado Urea nitrogen/Creatinine [Mass ratio] 11.0 mg/mg Normal [facility] Comment on above: Performed By: #### B NURSE LIAISON, CMP #### [facility] [address] [address] [address] Nathalia Mercado TSHon 10-31-2021 TSH 1.626 uIU/mL Normal 0.470-4.680 [facility] Comment on above: Performed By: #### G RASTCX, SSCRN #### [facility] [address] [address] [address] Nathalia Mercado TSH RANGE SEE BELOW Normal [facility] Comment on above: Result Comment: <0.3 4 UIU/ml HYPERTHYROID 0.34-5.60 UIU/ml EUTHYROID >5.60 UIU/ml HYPOTHYROID Performed By: #### G RASTCX, SSCRN #### [facility] [address] [address] [address] Nathalia Mercado XR CHEST 1 Von [...] by: CAIN ANAYA Date: 2021-10-31 12:56 Normal [facility] CORONAVIRUS ABBOTTon 022 HMOLE TESTING PERFORMED BY MOLECULAR METHOD Normal [facility] Comment on above: Performed By: #### C OVABOT #### [facility] [address] [facility] [address] [place] [address] [facility] [id number] HPCRA TEST PERFORMED USING ERAZO ID NOW Normal [facility] Comment on above: Performed By: #### C OVABOT #### [facility] [address] [place] [address] [employer] - Alesia FLORES [id number] SARS-CoV-2 (COVID-19) RNA MELISA+probe Ql (Unsp spec) Not detected Normal NOT DETECTED [facility] Comment on above: Performed By: #### C OVABOT #### [facility] [address] [place] [address] [employer] - Alesai FLORES [id number] CORONAVIRUS ABBOTTon 021 HMOLE TESTING PERFORMED BY MOLECULAR METHOD Normal [facility] Comment on above: Performed By: #### C OVABOT #### [facility] [address] [place] [address] [employer] Operator - Alesia FLORES [id number] HPCRA TEST PERFORMED USING ERAZO ID NOW Normal [facility] Comment on above: Performed By: #### C OVABOT #### [facility] [address] [place] [address] [employer] Operator - Alesia FLORES [id number] SARS-CoV-2 (COVID-19) RNA MELISA+probe Ql (Unsp spec) Not detected Normal NOT DETECTED [facility] Comment on above: Performed By: #### C OVABOT #### [facility] [address] [place] [address] [employer] - Alesia FLORES [id number] Encounters Encounter Date Encounter Type Care Provider Facility Start: 08-02-2023 End: 08-03-2023 ambulatory [facility] Start: 07-26-2023 End: 07-27-2023 ambulatory [facility] Start: 08-05-2022 End: 08-05-2022 ambulatory KAREN CADET . Facility:[facility] Start: 11-21-2021 End: 11-22-2021 ambulatory RICHA SAUCEDO Facility:[facility] Start: 10-31-2021 End: 10-31-2021 ambulatory AZUL Mullins Facility:[facility] Start: 07-10-2021 End: 07-11-2021 ambulatory BRONWYN BUTCHER MD Facility:[facility] Start: 04-10-2021 End: 04-11-2021 ambulatory NONE NONE Facility:[facility] Payers Date Payer Category Payer Unknown [id number] 2.16.84 [id number] 1980 Unknown [id number] 2.16.84 [id number] 1980 Unknown [id number] 2.16.8 [id number] 1980 Unknown [id number] 2.16.8 [id number] 1959 Self-pay 1959 Unknown [id number] Unknown [id number] 2.16.84 [id number] Summary Purpose Family History No Family History Records FoundNo Family History Records FoundNo Family History Records Found Advance Directives No Advanced Directives Records FoundNo Advanced Directives Records FoundNo Advanced Directives Records Found Additional Source Comments INFORMATION SOURCE (unrecogn ized section and content) DATE CREATED AUTHOR 07/12/2021 [facility] DATE CREATED AUTHOR AUTHOR'S ORGANIZ ATION 10/02/2022 [facility] DATE CREATED AUTHOR AUTHOR'S ORGANIZ ATION 08/03/2023 [facility] FOR RECORDS PERTAINING TO PATIENTS WHO ARE [...] BE BASED ON THE PRIMARY CLINICAL RECORDS. [employer] provides no warranty or guarantee of the accuracy or completeness of information in this document.
[2023-08-20 14:12] LABS: Influenza Virus A Antigen Negative; Influenza Virus B Antigen Negative; Internal Control Within Normal Limits; SARS-CoV-2 Ag NEGATIVE (NEGATIVE); Strep A Antigen Screen Negative
[2023-08-20] MEDS: DEXAMETHASONE SOD PHOS 10 MG/ML VIAL PO (14:13)
== END 2023-08-20 14:23 | disposition home or self-care (01) ==
PROVIDERS: Physician Assistant; Emergency Provider Emergency Medicine Emergency Medical Services
DX: R05.9 Cough, unspecified (principal); R53.1 Weakness; R19.7 Diarrhea, unspecified; R09.81 Nasal congestion; F17.210 Nicotine dependence, cigarettes, uncomplicated; Z79.899 Other long term (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 therapy; Z20.822 Contact with and (suspected) exposure to COVID-19
CPT/HCPCS: 87070; 87804; 87811; 87880; 99283; J1100

== ENCOUNTER 2024-09-08 15:36 | Emergency (ER) | payer SELFPAY ==
[2024-09-08 15:41] VITALS: BP 153/88; PULSE 103; TEMP 36.8; O2SAT 96; BMI 26.6
--- NOTE | 2024-09-08 15:51 | ED_ITS ---
HPI - Dental/Oral General Chief complaint: Dental/Oral Stated complaint: Dental Pain Time Seen by Provider: 09/08/24 15:47 Source: patient Mode of arrival: walk-in History of Present Illness HPI Narrative: 44 year old female presents to the ED for left upper dental pain. Onset was 3 days ago. Denies fever, chills, SOB, difficulty swallowing. She has been taking motrin and tylenol without relief. She has not had motrin today. She last took tylenol this morning. She is a smoker. Related Data Home Medications ?Medication ?Instructions ?Recorded ?Confirmed alprazolam 1 mg tablet (Xanax) 1 mg PO QID 03/12/23 04/16/23 brexpiprazole 0.5 mg tablet 4 mg PO DAILY 03/12/23 04/16/23 (Rexulti) dextroamphetamine-amphetamine 15 20 mg PO TID 03/12/23 03/12/23 mg tablet Previous Rx's ?Medication ?Instructions ?Recorded ketorolac 10 mg tablet 10 mg PO TID PRN pain #10 tabs 03/12/23 tizanidine 4 mg tablet (Zanaflex) 4 mg PO TID PRN muscle spasticity 04/08/23 5 days #15 tabs albuterol sulfate 90 mcg/actuation 2 inh inhalation Q4H PRN shortness 04/16/23 aerosol inhaler of breath or wheezing #8.5 grams azithromycin 250 mg tablet See Rx Instructions PO .COMPLEX #6 04/16/23 (Zithromax Z-Mitch) tabs zpqehbnbldrzuet-uzjthhnnxlcoadz-FK 10 ml PO Q6H PRN cold symptoms 04/16/23 2 mg-30 mg-10 mg/5 mL oral syrup #200 mL (Bromfed DM) prednisone 20 mg tablet See Rx Instructions .Route 04/16/23 .COMPLEX #12 tabs clindamycin HCl 300 mg capsule 300 mg PO QID 10 days #40 caps 05/05/23 fluconazole 150 mg tablet 150 mg PO DAILY 1 dose #1 tab 05/05/23 ibuprofen 600 mg tablet 600 mg PO TID PRN pain #30 tabs 05/05/23 ztqnzlfnldudxwv-jphfrcdlaorzhjq-SO 10 ml PO Q6H PRN cold symptoms 08/20/23 2 mg-30 mg-10 mg/5 mL oral syrup #200 mL (Bromfed DM) ondansetron 4 mg disintegrating 4 mg PO Q6H PRN nausea and 08/20/23 tablet vomiting #12 tabs hydrocodone 5 mg-acetaminophen 325 1 tab PO Q8H PRN pain 3 days #9 09/08/24 mg tablet tabs ibuprofen 800 mg tablet 800 mg PO Q8H PRN pain #15 tabs 09/08/24 penicillin V potassium 500 mg 500 mg PO Q6H 10 days #40 tabs 09/08/24 tablet Allergies Allergy/AdvReac Type Severity Reaction Status Date / Time No Known Drug Allergies Allergy Verified 07/30/23 20:49 Review of Systems ROS Constitutional Denies: fever or chills Eyes Denies: change in vision Ears, nose, mouth, and throat Reports: mouth pain; Denies: throat pain or neck pain Cardiovascular Denies: chest pain Respiratory Denies: shortness of breath Neurological Reports: headache; Denies: numbness in extremities, weakness in extremities or dizziness PFS PFS Social History Smoking status: Current every day smoker Little interest or pleasure in doing things: not at all Feeling down, depressed, or hopeless: not at all Exam Constitutional Vital Signs, click to edit/add: Last Vital Signs Temp 98.2 F 09/08/24 15:41 Pulse 103 H 09/08/24 15:41 Resp 18 09/08/24 15:41 BP 153/88 H 09/08/24 15:41 Pulse Ox 96 09/08/24 15:41 O2 Del Method Room Air 09/08/24 15:41 Common normals: no apparent distress and oriented x3 General appearance: cooperative Orientation/consciousness: Yes awake HENAR Common normals: moist oral mucous membranes Teeth and gingiva: caries Throat: posterior oropharynx normal Other: Raised area to left upper outer gum tissue. I and D indicated. No facial swelling. No swelling to floor of mouth. Pt speaking in full sentences, handling secretions well. Eye Common normals: PERRL, conjunctivae normal and no scleral icterus Neck & C-Spine Common normals: supple Chest Chest: symmetrical chest wall rise Respiratory Common normals: normal respiratory effort Effort & inspection: able to speak in complete sentences and symmetric chest movement Cardio Common normals: regular rate Neuro Common normals: oriented x3 and moves all extremities Sensorium/orientation: awake and alert Speech: speech normal Course Vital Signs Vital signs: Vital Signs Temperature 98.2 F 09/08/24 15:41 Pulse Rate 103 H 09/08/24 15:41 Respiratory Rate 18 09/08/24 15:41 Blood Pressure 153/88 H 09/08/24 15:41 Pulse Oximetry 96 09/08/24 15:41 Oxygen Delivery Method Room Air 09/08/24 15:41 Temperature 98.2 F 09/08/24 15:41 Pulse Rate 103 H 09/08/24 15:41 Respiratory Rate 18 09/08/24 15:41 Blood Pressure 153/88 H 09/08/24 15:41 Pulse Oximetry 96 09/08/24 15:41 Oxygen Delivery Method Room Air 09/08/24 15:41 MDM - Dental/Oral MDM Narrative Medical decision making narrative: I and D was completed. A #21G needle was used for the procedure. A moderate amount of purulent drainage was expressed. She tolerated it well. OARRS was reviewed. Prescriptions were provided for PCN, motrin, and norco. Follow up with a dentist for a recheck, further evaluation and treatment. Differential Diagnosis Differential diagnosis: Likely gingival abscess, dental caries, toothache and dental abscess Discharge Plan Discharge Chief Complaint: Dental/Oral Clinical Impression: Dental abscess Patient Disposition: Home, Self-Care Time of Disposition Decision: 16:49 Condition: Good Mode of Transportation: Private Vehicle Prescriptions / Home Meds: New penicillin V potassium 500 mg tablet 500 mg PO Q6H 10 Days Qty: 40 0RF ibuprofen 800 mg tablet 800 mg PO Q8H PRN (Reason: pain) Qty: 15 0RF hydrocodone-acetaminophen 5-325 mg tablet 1 tab PO Q8H PRN (Reason: pain) 3 Days Qty: 9 0RF No Action fluconazole 150 mg tablet 150 mg PO DAILY Qty: 1 0RF Rx Instructions: take after antibiotics ibuprofen 600 mg tablet 600 mg PO TID PRN (Reason: pain) Qty: 30 0RF clindamycin HCl 300 mg capsule 300 mg PO QID 10 Days Qty: 40 0RF rvqznvpvfrjilli-uedmketus-DW [Bromfed DM] 2-30-10 mg/5 mL syrup 10 ml PO Q6H PRN (Reason: cold symptoms) Qty: 200 0RF ondansetron 4 mg tablet,disintegrating 4 mg PO Q6H PRN (Reason: nausea and vomiting) Qty: 12 0RF Rexulti 0.5 mg tablet 4 mg PO DAILY dextroamphetamine-amphetamine 15 mg tablet 20 mg PO TID alprazolam [Xanax] 1 mg tablet 1 mg PO QID ketorolac 10 mg tablet 10 mg PO TID PRN (Reason: pain) Qty: 10 0RF tizanidine [Zanaflex] 4 mg tablet 4 mg PO TID PRN (Reason: muscle spasticity) 5 Days Qty: 15 0RF azithromycin [Zithromax Z-Mitch] 250 mg tablet See Rx Instructions .ROUTE .COMPLEX Qty: 6 0RF Rx Instructions: For 250 mg dose pack: take 500 mg today (day 1), then 250 mg for 4 days (days 2-5) prednisone 20 mg tablet See Rx Instructions .ROUTE .COMPLEX Qty: 12 0RF Rx Instructions: 3 tabs daily for 2 days, then 2 tabs daily for 2 days, then 1 tab daily for 2 days albuterol sulfate 90 mcg/actuation HFA aerosol inhaler 2 inh inhalation Q4H PRN (Reason: shortness of breath or wheezing) Qty: 8.5 0RF hcesbncqvpnfktd-aqajfnekl-AV [Bromfed DM] 2-30-10 mg/5 mL syrup 10 ml PO Q6H PRN (Reason: cold symptoms) Qty: 200 0RF Print Language: [place] Islander Instructions: Dental Abscess (ED) Additional Instructions: Follow up with your dentist. Return to the ER if your condition worsens. Referrals: Physician,Non-Staff, MD [Primary Care Provider] - 1 week
[2024-09-08] MEDS: KETOROLAC TROMETHAMINE 60 MG/2 ML VIAL IM (16:15)
[2024-09-08] MEDS: BENZOCAINE 30 ML, lidocaine HCL 15 ML MM (16:16)
--- NOTE | 2024-09-08 17:02 | PC.NURSE ---
red with slight swelling to upper left back area of mouth. no drainage observed at this time.
== END 2024-09-08 17:06 | disposition home or self-care (01) ==
PROVIDERS: Emergency Provider Emergency Medicine
DX: K04.7 Periapical abscess without sinus (principal); F17.200 Nicotine dependence, unspecified, uncomplicated
CPT/HCPCS: 41800; 96372; 99284; J1885

== ENCOUNTER 2025-06-02 15:56 | Emergency (ER) | payer OTHER, SELFPAY ==
--- OUTSIDE RECORDS SUMMARY | 2025-02-09 03:00 | XMS_ITS ---
Author Organization [facility] es Address [address] [place] [address] Care Team Providers Care Manager Books Name Role Phone Rogelio Amin Primary Care Provider [phone] REASON FOR VISIT UPDATED EXAM Encounters Encounter Location Date Provider Diagnosis [address] [place] [address] 02/09/2025 Rogelio Amin Plan Of Treatment No Information Progress Notes * ARNULFO OTOOLE LDOB:1980 (45 yo F)Acc No.[id number]:02/09/2025 Patient:?XIANG ARNULFO Valenzuela :?Rogelio Amin DDSDOB:1980???Age:44 Y ???Sex:FemaleDate:02/09/2025Phone:[phone]:[place], [id number] Subjective: * Chief Complaints: * U PDATED EXAM Billing Information: * Procedure Codes: * Electronic signature of Rogelio Amin DDS on 06/02/2025 at 04:20 PM ESTSign off status: Pending * Provider: Kayleigh Amin DDS Date: 0 02/09/2025 Generated for Printing/Faxing/eTransmitting on:?06/02/2025 04:20 PM EST
[2025-06-02 16:00] VITALS: BP 144/98; PULSE 83; TEMP 36.6; O2SAT 100; BMI 31.7
[2025-06-02 16:03] VITALS: BP 144/98; PULSE 88; TEMP 36.8; O2SAT 99; BMI 31.7
--- NOTE | 2025-06-02 16:11 | ED_ITS ---
HPI HPI - General Adult General Chief complaint: Dental/Oral Stated complaint: Dental Pain Time Seen by Provider: 06/02/25 15:59 Source: patient Mode of arrival: walk-in Limitations: no limitations History of Present Illness HPI narrative: 45-year-old female presented for toothache. She is complaining pain to the left upper dentition which is moderate. She knows she has bad teeth and is attempting to get into see her dentist but she knows she will need to be on some antibiotics. She does not request any pain medication, she states she has ibuprofen at home. No difficulty breathing or swallowing. Related Data Home Medications ?Medication ?Instructions ?Recorded ?Confirmed alprazolam 1 mg tablet (Xanax) 1 mg PO QID 03/12/23 brexpiprazole 0.5 mg tablet 4 mg PO DAILY 03/12/23 (Rexulti) dextroamphetamine-amphetamine 15 20 mg PO TID 03/12/23 03/12/23 mg tablet Previous Rx's ?Medication ?Instructions ?Recorded ketorolac 10 mg tablet 10 mg PO TID PRN pain #10 ta bs 03/12/23 Held on 04/16/23. Instructions: dc tizanidine 4 mg tablet (Zanaflex) 4 mg PO TID PRN musc le spasticity 04/08/23 Held on 04/16/23. 5 days #15 tabs Instructions: dc albuterol sulfate 90 mcg/actuation 2 inh inhalation Q4 H PRN shortness 04/16/23 aerosol inhaler of breath or wheezing #8.5 g magalie azithromycin 250 mg tablet See Rx Instructions PO .COM PLEX #6 04/16/23 (Zithromax Z-Mitch) tabs qdtocxppbonyfsd-guqqbibzvzdxbeo-EL 10 ml PO Q6H PRN co ld symptoms 04/16/23 2 mg-30 mg-10 mg/5 mL oral syrup #200 mL (Bromfed DM) prednisone 20 mg tablet See Rx Instructions .Route 1 .COMPLEX #12 tabs clindamycin HCl 300 mg capsule 300 mg PO QID 10 days # 40 caps 05/05/23 fluconazole 150 mg tablet 150 mg PO DAILY 1 dose #1 ta b 05/05/23 ibuprofen 600 mg tablet 600 mg PO TID PRN pain #30 t abs 05/05/23 sgorqqtaxdcnwpq-algbnstyzyipynp-VI 10 ml PO Q6H PRN co ld symptoms 08/20/23 2 mg-30 mg-10 mg/5 mL oral syrup #200 mL (Bromfed DM) ondansetron 4 mg disintegrating 4 mg PO Q6H PRN nausea and 08/20/23 tablet vomiting #12 tabs hydrocodone 5 mg-acetaminophen 325 1 tab PO Q8H PRN pa in 3 days #9 09/08/24 mg tablet tabs ibuprofen 800 mg tablet 800 mg PO Q8H PRN pain #15 t abs 09/08/24 penicillin V potassium 500 mg 500 mg PO Q6H 10 days #4 0 tabs 09/08/24 tablet clindamycin HCl 300 mg capsule 300 mg PO Q6H 10 days # 40 caps 06/02/25 Allergies Allergy/AdvReac Type Severity Reaction Status Date / Time No Known Drug Allergies Allergy Verified 06/02/25 16:06 Opioid HPI Opioid Management Most Recent Opioid Data: Last Pain Scale 7 04/08/23, 14:44 Review of Systems ROS Narrative A ten point review of systems is negative except as noted above. [facility] Social History Smoking status: Current every day smoker Little interest or pleasure in doing things: not at all Feeling down, depressed, or hopeless: not at all Exam Narrative Exam Narrative: Nurses note and vital signs reviewed General:The patient appears well and in no apparent distress.Patient is resting comfortably on cart. Skin:Warm, dry, no pallor noted.There is no rash noted. Head:Normocephalic, atraumatic Eye: Normal conjunctiva, no drainage Ears, Nose, Mouth, and Throat: oral mucosa is moist. Nares patent. No swelling to the floor of her mouth. She is handling her oral secretions well. Dental caries noted in the left upper dentition. No bleeding or pus present. Cardiovascular:Regular Rate and Rhythm Respiratory:Patient is in no distress, no accessory muscle use Back:non-tender GI:Normal bowel sounds, no tenderness to palpation, no masses appreciated.No rebound, guarding, or rigidity noted. Musculoskeletal: The patient has no evidence of calf tenderness, no pitting edema, symmetrical pulses noted bilaterally Neurological:A&O, normal speech Psychiatric:Cooperative Constitutional Vital Signs, click to edit/add: Last Vital Signs Temp 98.3 F 06/02/25 16:03 Pulse 88 06/02/25 16:03 Resp 14 06/02/25 16:03 BP 144/98 H 06/02/25 16:03 Pulse Ox 99 06/02/25 16:03 O2 Del Method Room Air 06/02/25 16:03 Course Vital Signs Vital signs: Vital Signs Temperature 97.8 F 06/02/25 16:00 Pulse Rate 83 06/02/25 16:00 Respiratory Rate 14 06/02/25 16:00 Blood Pressure 144/98 H 06/02/25 16:00 Pulse Oximetry 100 06/02/25 16:00 Oxygen Delivery Method Room Air 06/02/25 16:00 Temperature 98.3 F 06/02/25 16:03 Pulse Rate 88 06/02/25 16:03 Respiratory Rate 14 06/02/25 16:03 Blood Pressure 144/98 H 06/02/25 16:03 Pulse Oximetry 99 06/02/25 16:03 Oxygen Delivery Method Room Air 06/02/25 16:03 Medical Decision Making MDM Narrative Medical decision making narrative: She was prescribed clindamycin. She was offered pain medication but declines and she will follow-up with her dentist. Treatment diagnosis and follow-up were discussed with the patient. Differential Diagnosis Differential Diagnosis: Dental caries, dental abscess, gingivitis Discharge Plan Discharge Chief Complaint: Dental/Oral Clinical Impression: Dental caries Patient Disposition: Home, Self-Care Time of Disposition Decision: 16:10 Condition: Good Mode of Transportation: Private Vehicle Prescriptions / Home Meds: New clindamycin HCl 300 mg capsule 300 mg PO Q6H 10 Days Qty: 40 0RF No Action fluconazole 150 mg tablet 150 mg PO DAILY Qty: 1 0RF Rx Instructions: take after antibiotics ibuprofen 600 mg tablet 600 mg PO TID PRN (Reason: pain) Qty: 30 0RF clindamycin HCl 300 mg capsule 300 mg PO QID 10 Days Qty: 40 0RF dzdmybsormweivg-hetovgduy-HJ [Bromfed DM] 2-30-10 mg/5 mL syrup 10 ml PO Q6H PRN (Reason: cold symptoms) Qty: 200 0RF ondansetron 4 mg tablet,disintegrating 4 mg PO Q6H PRN (Reason: nausea and vomiting) Qty: 12 0RF Rexulti 0.5 mg tablet 4 mg PO DAILY dextroamphetamine-amphetamine 15 mg tablet 20 mg PO TID alprazolam [Xanax] 1 mg tablet 1 mg PO QID ketorolac 10 mg tablet 10 mg PO TID PRN (Reason: pain) Qty: 10 0RF tizanidine [Zanaflex] 4 mg tablet 4 mg PO TID PRN (Reason: muscle spasticity) 5 Days Qty: 15 0RF azithromycin [Zithromax Z-Mitch] 250 mg tablet See Rx Instructions .ROUTE .COMPLEX Qty: 6 0RF Rx Instructions: For 250 mg dose pack: take 500 mg today (day 1), then 250 mg for 4 days (days 2-5) prednisone 20 mg tablet See Rx Instructions .ROUTE .COMPLEX Qty: 12 0RF Rx Instructions: 3 tabs daily for 2 days, then 2 tabs daily for 2 days, then 1 tab daily for 2 days albuterol sulfate 90 mcg/actuation HFA aerosol inhaler 2 inh inhalation Q4H PRN (Reason: shortness of breath or wheezing) Qty: 8.5 0RF kkwoswkfixirkpo-roukfbmvh-EL [Bromfed DM] 2-30-10 mg/5 mL syrup 10 ml PO Q6H PRN (Reason: cold symptoms) Qty: 200 0RF penicillin V potassium 500 mg tablet 500 mg PO Q6H 10 Days Qty: 40 0RF ibuprofen 800 mg tablet 800 mg PO Q8H PRN (Reason: pain) Qty: 15 0RF hydrocodone-acetaminophen 5-325 mg tablet 1 tab PO Q8H PRN (Reason: pain) 3 Days Qty: 9 0RF Print Language: Kiswahili Instructions: Toothache (ED) Additional Instructions: Follow-up with your dentist. Referrals: Physician,Non-Staff, MD [Primary Care Provider] - 1 week
--- OUTSIDE RECORDS SUMMARY | 2025-06-02 16:20 | XMS_ITS | Patient Health Record ---
Author Organization [facility] Address [address] [place] [address] Care Team Providers Care Php Wordpress Developer Name Role Phone Rogelio Amin Primary Care Provider Reason For Referral No Information Plan Of Treatment No Information Insurance Providers Payer Name Payer Address Payer Phone Subscriber Number Group Number Insured Name Patient Relationship to Insured Coverage Start Date Coverage End Date [employer] [address] [address] [place] [address] [id number] Pura OTOOLE - patient is the [id number] 20[address]ental Wrap [facility] [address] [place] [id number], AMIESelf - patient is the [id number] 2022
--- OUTSIDE RECORDS SUMMARY | 2025-06-02 16:20 | XMS_ITS | Clinical Summary ---
Author Organization [facility] Healthcare Address [address] [place] [address] Care Team Providers Care Harp Repairer Name Role Phone Unavailable Primary Care Provider Unavailabl e Social History Tobacco UseTypesPacks/DayYears UsedDateSmoking Tobacco: Never Assessed CommentsUnknownSex and Gender InformationValueDate RecordedSex Assigned at Not on fileLegal JokWtllxa04/15/2023 11:52 PM EDTGender IdentityNot on file Sexual OrientationNot on file Plan of Treatment Not on file
== END 2025-06-02 17:05 | disposition home or self-care (01) ==
PROVIDERS: Emergency Provider Emergency Medicine
DX: K02.9 Dental caries, unspecified (principal); F17.200 Nicotine dependence, unspecified, uncomplicated
CPT/HCPCS: 99283

== ENCOUNTER 2025-06-23 10:42 | Emergency (ER) | payer OTHER, SELFPAY ==
--- OUTSIDE RECORDS SUMMARY | 2025-02-09 03:00 | XMS_ITS ---
Author Organization [facility] es Address [address] [place] [address] Care Team Providers Care Projection Engineer Name Role Phone Rogelio Amin Primary Care Provider [phone] REASON FOR VISIT UPDATED EXAM Encounters Encounter Location Date Provider Diagnosis [address] [place] [address] 02/09/2025 Rogelio Amin Plan Of Treatment No Information Progress Notes * ARNULFO OTOOLE LDOB:1980 (45 yo F)Acc No.[id number]:02/09/2025 Patient:?XIANG ARNULFO Valenzuela :?Rogelio Amin DDSDOB:1980???Age:44 Y ???Sex:FemaleDate:02/09/2025Phone:[phone]:[place], [id number] Subjective: * Chief Complaints: * U PDATED EXAM Billing Information: * Procedure Codes: * Electronic signature of Rogelio Amin DDS on 06/23/2025 at 11:26 AM ESTSign off status: Pending * Provider: Kayleigh Amin DDS Date: 0 02/09/2025 Generated for Printing/Faxing/eTransmitting on:?06/23/2025 11:26 AM EST
[2025-06-23 10:52] VITALS: BP 143/92; PULSE 107; TEMP 36.6; O2SAT 97; BMI 32.5
[2025-06-23] MEDS: ONDANSETRON 4 MG RAPDIS TABLET SL (11:19)
--- OUTSIDE RECORDS SUMMARY | 2025-06-23 11:26 | XMS_ITS | Patient Health Record ---
Author Organization [facility] Address [address] [place] [address] Care Team Providers Care Environmental Technical Officer Name Role Phone Rogelio Amin Primary Care Provider [phone] Reason For Referral No Information Plan Of Treatment No Information Insurance Providers Payer Name Payer Address Payer Phone Subscriber Number Group Number Insured Name Patient Relationship to Insured Coverage Start Date Coverage End Date [employer] [place] [employer] [address] [address] [place] [address] [id number] Pura OTOOLE - patient is the [id number] 2022ental Wrap [facility] [address] [place] [id number], AMIESelf - patient is the [id number] 2022
--- OUTSIDE RECORDS SUMMARY | 2025-06-23 11:26 | XMS_ITS | Clinical Summary ---
Author Organization [facility] Healthcare Address [address] [place] [address] Care Team Providers Care Lien Searcher Name Role Phone Unavailable Primary Care Provider Unavailabl e Social History Tobacco UseTypesPacks/DayYears UsedDateSmoking Tobacco: Never Assessed CommentsUnknownSex and Gender InformationValueDate RecordedSex Assigned at Not on fileLegal AvfVxuhnn48/15/2023 11:52 PM EDTGender IdentityNot on file Sexual OrientationNot on file Plan of Treatment Not on file
[2025-06-23 11:27] VITALS: O2SAT 97
[2025-06-23 11:39] LABS: SARS-CoV-2 Ag NEGATIVE (NEGATIVE)
--- NOTE | 2025-06-23 16:50 | ED.GENADUL1 ---
HPI HPI - General Adult General Chief complaint: Upper Respiratory Infection Stated complaint: HEADACHE,SORE THROAT, CHILLS Time Seen by Provider: 06/23/25 10:44 Source: patient Mode of arrival: walk-in Limitations: no limitations History of Present Illness HPI narrative: Patient is a 45-year-old female presenting to the emergency department for evaluation of URI symptoms. Patient has had headache, nausea, body aches, fatigue, and congestion for the last 4 to 5 days. She believes she has COVID-like symptoms as this is how she felt last year when she had COVID. She denies chest pain or shortness of breath. No fevers or chills. No abdominal pain, vomiting, constipation, or diarrhea. She is otherwise healthy with no chronic medical conditions. Related Data Home Medications ?Medication ?Instructions ?Recorded ?Confirmed alprazolam 1 mg tablet (Xanax) 1 mg PO QID 03/12/23 04/16/23 brexpiprazole 0.5 mg tablet 4 mg PO DAILY 03/12/23 04/16/23 (Rexulti) dextroamphetamine-amphetamine 15 20 mg PO TID 03/12/23 03/12/23 mg tablet Previous Rx's ?Medication ?Instructions ?Recorded ketorolac 10 mg tablet 10 mg PO TID PRN pain #10 tabs 03/12/23 Held on 04/16/23. Instructions: dc tizanidine 4 mg tablet (Zanaflex) 4 mg PO TID PRN muscle spasticity 04/08/23 Held on 04/16/23. 5 days #15 tabs Instructions: dc albuterol sulfate 90 mcg/actuation 2 inh inhalation Q4H PRN shortness 04/16/23 aerosol inhaler of breath or wheezing #8.5 grams azithromycin 250 mg tablet See Rx Instructions PO .COMPLEX #6 04/16/23 (Zithromax Z-Mitch) tabs pqhiesbnhsittag-wemwuldyxhlqafz-HU 10 ml PO Q6H PRN cold symptoms 04/16/23 2 mg-30 mg-10 mg/5 mL oral syrup #200 mL (Bromfed DM) prednisone 20 mg tablet See Rx Instructions .Route 04/16/23 .COMPLEX #12 tabs clindamycin HCl 300 mg capsule 300 mg PO QID 10 days #40 caps 05/05/23 fluconazole 150 mg tablet 150 mg PO DAILY 1 dose #1 tab 05/05/23 ibuprofen 600 mg tablet 600 mg PO TID PRN pain #30 tabs 05/05/23 gzmhmnjxluevzvt-vuuxkrbnudppwjs-RJ 10 ml PO Q6H PRN cold symptoms 08/20/23 2 mg-30 mg-10 mg/5 mL oral syrup #200 mL (Bromfed DM) ondansetron 4 mg disintegrating 4 mg PO Q6H PRN nausea and 08/20/23 tablet vomiting #12 tabs hydrocodone 5 mg-acetaminophen 325 1 tab PO Q8H PRN pain 3 days #9 09/08/24 mg tablet tabs ibuprofen 800 mg tablet 800 mg PO Q8H PRN pain #15 tabs 09/08/24 penicillin V potassium 500 mg 500 mg PO Q6H 10 days #40 tabs 09/08/24 tablet clindamycin HCl 300 mg capsule 300 mg PO Q6H 10 days #40 caps 06/02/25 ondansetron 4 mg disintegrating 4 mg PO Q8H PRN nausea and 06/23/25 tablet vomiting 5 days #10 tabs Allergies Allergy/AdvReac Type Severity Reaction Status Date / Time No Known Drug Allergies Allergy Verified 06/23/25 10:51 Opioid HPI Opioid Management Most Recent Opioid Data: Last Pain Scale 10 Today, 10:52 Review of Systems ROS Status of ROS 10 or more systems reviewed and unremarkable except as noted in history and below [facility] Social History Smoking status: Current every day smoker Little interest or pleasure in doing things: not at all Feeling down, depressed, or hopeless: not at all Exam Narrative Exam Narrative: CONSTITUTIONAL: Well-appearing, answering questions and following commands appropriately SKIN: Was warm and dry. EYES: Sclerae white. EARS, NOSE, THROAT: Moist oral mucosa. Mild erythema in the posterior pharynx without tonsil enlargement or exudates. RESPIRATORY: Clear to auscultation bilaterally, no wheezes, crackles, or stridor, no use of accessory muscles CARDIOVASCULAR: Normal rate and regular rhythm. There is no S3, S4, murmur, rub. GASTROINTESTINAL: Abdomen is nondistended. MUSCULOSKELETAL: No peripheral edema. Full range of motion in the neck without nuchal rigidity. NEUROLOGIC: Patient is awake and alert. Facies were symmetrical. Constitutional Vital Signs, click to edit/add: Last Vital Signs Temp 98 F 06/23/25 10:52 Pulse 107 H 06/23/25 10:52 Resp 20 06/23/25 10:52 BP 143/92 H 06/23/25 10:52 Pulse Ox 97 06/23/25 11:27 O2 Del Method Room Air 06/23/25 11:27 Course Vital Signs Vital signs: Vital Signs Temperature 98 F 06/23/25 10:52 Pulse Rate 107 H 06/23/25 10:52 Respiratory Rate 20 06/23/25 10:52 Blood Pressure 143/92 H 06/23/25 10:52 Pulse Oximetry 97 06/23/25 10:52 Oxygen Delivery Method Room Air 06/23/25 10:52 Temperature 98 F 06/23/25 10:52 Pulse Rate 107 H 06/23/25 10:52 Respiratory Rate 20 06/23/25 10:52 Blood Pressure 143/92 H 06/23/25 10:52 Pulse Oximetry 97 06/23/25 11:27 Oxygen Delivery Method Room Air 06/23/25 11:27 Medical Decision Making MDM Narrative Medical decision making narrative: Patient is a 45-year-old female presenting to the emergency department for evaluation of flulike symptoms x 5 days. Her vital signs are significant for mild tachycardia, otherwise were within normal limits - likely secondary to her acute illness. She is afebrile and hemodynamically stable. She is saturating 97% on room air with clear breath sounds bilaterally. Overall, patient appears well with an unremarkable physical examination. Patient's presentation is most likely secondary to a viral URI. I did consider pneumonia, however the patient has clear/equal breath sounds bilaterally, is not hypoxic, and overall looks non-toxic and well-hydrated. She was given oral Zofran for symptomatic treatment. COVID/flu swabs are negative. I do believe the patient is stable for discharge. Patient's presentation is most likely consistent with viral syndrome. They were instructed to follow up with her PCP in 5 days for check-up. Return precautions were given including any new or worsening symptoms. Patient understands and agrees to the plan. FINAL IMPRESSION: #Acute viral syndrome DISPOSITION: Discharged home CONDITION: Good Lab Data Lab results reviewed: Yes I reviewed the patient's lab results Labs: Lab Results 06/23/25 Range/Units 11:20 Influenza Type A Ag Negative Influenza Type B Ag Negative SARS-CoV-2 Ag (CV2AG) Negative (NEGATIVE) Discharge Plan Discharge Chief Complaint: Upper Respiratory Infection Clinical Impression: Upper respiratory infection Patient Disposition: Home, Self-Care Time of Disposition Decision: 11:45 Condition: Good Mode of Transportation: Private Vehicle Prescriptions / Home Meds: New ondansetron 4 mg tablet,disintegrating 4 mg PO Q8H PRN (Reason: nausea and vomiting) 5 Days Qty: 10 0RF No Action fluconazole 150 mg tablet 150 mg PO DAILY Qty: 1 0RF Rx Instructions: take after antibiotics ibuprofen 600 mg tablet 600 mg PO TID PRN (Reason: pain) Qty: 30 0RF clindamycin HCl 300 mg capsule 300 mg PO QID 10 Days Qty: 40 0RF vyhyywybrehqzcn-dmnyrtjsk-NA [Bromfed DM] 2-30-10 mg/5 mL syrup 10 ml PO Q6H PRN (Reason: cold symptoms) Qty: 200 0RF ondansetron 4 mg tablet,disintegrating 4 mg PO Q6H PRN (Reason: nausea and vomiting) Qty: 12 0RF Rexulti 0.5 mg tablet 4 mg PO DAILY dextroamphetamine-amphetamine 15 mg tablet 20 mg PO TID alprazolam [Xanax] 1 mg tablet 1 mg PO QID ketorolac 10 mg tablet 10 mg PO TID PRN (Reason: pain) Qty: 10 0RF tizanidine [Zanaflex] 4 mg tablet 4 mg PO TID PRN (Reason: muscle spasticity) 5 Days Qty: 15 0RF azithromycin [Zithromax Z-Mitch] 250 mg tablet See Rx Instructions .ROUTE .COMPLEX Qty: 6 0RF Rx Instructions: For 250 mg dose pack: take 500 mg today (day 1), then 250 mg for 4 days (days 2-5) prednisone 20 mg tablet See Rx Instructions .ROUTE .COMPLEX Qty: 12 0RF Rx Instructions: 3 tabs daily for 2 days, then 2 tabs daily for 2 days, then 1 tab daily for 2 days albuterol sulfate 90 mcg/actuation HFA aerosol inhaler 2 inh inhalation Q4H PRN (Reason: shortness of breath or wheezing) Qty: 8.5 0RF idctjmpljoziesf-inwgbrcsx-OQ [Bromfed DM] 2-30-10 mg/5 mL syrup 10 ml PO Q6H PRN (Reason: cold symptoms) Qty: 200 0RF penicillin V potassium 500 mg tablet 500 mg PO Q6H 10 Days Qty: 40 0RF ibuprofen 800 mg tablet 800 mg PO Q8H PRN (Reason: pain) Qty: 15 0RF hydrocodone-acetaminophen 5-325 mg tablet 1 tab PO Q8H PRN (Reason: pain) 3 Days Qty: 9 0RF clindamycin HCl 300 mg capsule 300 mg PO Q6H 10 Days Qty: 40 0RF Print Language: [place] Instructions: Viral Syndrome (ED) Additional Instructions: Follow up with your PCP in 5 days for check-up Referrals: Physician,Non-Staff, MD [Primary Care Provider] - 1 week Discharge Date/Time: 06/23/25 11:55
== END 2025-06-23 11:55 | disposition home or self-care (01) ==
PROVIDERS: Emergency Provider Student in an Organized Health Care Education/Training Program
DX: J06.9 Acute upper respiratory infection, unspecified (principal); Z86.16 Personal history of COVID-19; F17.200 Nicotine dependence, unspecified, uncomplicated
CPT/HCPCS: 87804; 87811; 99283; Q0162